=== PATIENT | female | born 2000 | race Two or more races ===

== ENCOUNTER → 2024-09-04 | Outpatient (CLI) | payer MEDICAID, SELFPAY ==
--- NOTE | 2024-09-04 16:18 | XR_ITS ---
Examination: Complete OB ultrasound, less than 14 weeks, transabdominal Date and time of exam: September 04, 2024 1622 hours INDICATIONS: Diagnosis high risk Technique: Obstetrical ultrasound images less than 14 weeks performed via transabdominal imaging Findings: A normal shaped single intrauterine gestation is present in the uterus. pole 6.6 cm corresponds to 12 weeks 6 days gestational age Cardiac motion 160 BPM Ultrasonographic survey of visible and placental structures unremarkable. Amniotic fluid volume appears appropriate for this estimated gestational age. Right ovary 2.9 cm arterial flow Left ovary 3.6 cm arterial flow IMPRESSION: Viable intrauterine gestation 12 weeks 6 days.
== END | disposition home or self-care (01) ==
PROVIDERS: Referring Provider Obstetrics & Gynecology; Visit Provider Obstetrics & Gynecology
DX: O09.91 Supervision of high risk pregnancy, unspecified, first trimester (principal); Z3A.12 12 weeks gestation of pregnancy
CPT/HCPCS: 76801

== ENCOUNTER 2025-01-21 13:05 | Outpatient (AMB) | payer MEDICAID, SELFPAY ==
[2025-01-21 13:20] VITALS: BP 110/69; PULSE 84; RESP 16; TEMP 36.2; O2SAT 98
--- NOTE | 2025-01-21 13:20 | OBCLNT_ITS ---
Vital Signs 01/21/25 13:20 Weight 63.56 kg Weight Measurement Method Standing Scale BP 110/69 Blood Pressure Source Automatic Cuff Blood Pressure Location Left Upper Arm Position Sitting Respiration 16 Pulse 84 Pulse Source Monitor Temp 97.2 F Temp Source Oral Pulse Oximetry (%) 98 Oxygen Delivery Method Room Air Allergies/Home Meds Allergies & Medications Allergies No Known Allergies Allergy (Verified 01/21/25 13:21) Medication Reconciliation No Known Home Medications 01/21/25 [History Confirmed 01/21/25] Intake Visit Data Collection New Patient or Established: Established Patient (seen at [facility] within 3 years) Reason for Visit:: OB TRANSFER Seen by Clinical Staff ONLY (RN/MA): No Fire Regulator Required: No Do You Feel Safe at Home: Yes Authorities Contacted: N/A PCP or OBGYN visit in last 3 months: Yes Hx Now: Yes Are you currently on any form of Control: No Last menstrual period: 06/06/24 Pain Present Currently: No Pain Scale Used: Smith-Bowen/Numerical Pain scale:: 0 Smoking Status Smoking Status: Never smoker Questionnaires Covid-19 Vaccine Questionnaire Has patient been vacinated for Covid-19 Have you been vacinated for Covid-19: No PHQ-9 PHQ-2 Over the last 2 weeks, how often have you been bothered by any of the following problems? 1. Little interest or pleasure in doing things: not at all 2. Feeling down, depressed, or hopeless: not at all Total score: 0 PHQ-9 3. Trouble falling or staying asleep, or sleeping too much: Not at all 4. Feeling tired or having little energy: Not at all 5. Poor appetite or overeating: Not at all 6. Feeling bad about yourself - or that you are a failure or have let yourself or your family down: Not at all 7. Trouble concentrating on things, such as reading the newspaper or watching television: Not at all 8. Moving or speaking so slowly that other people could have noticed? - Or the opposite - being so fidgety or restless that you have been moving around a lot more than usual: not at all 9. Thoughts that you would be better off or of hurting yourself in some way: Not at all Total score: 0 If you checked off any problems, how difficult have these problems made it for you to do your work, take care of things at home, or get along with other people?: not difficult at all Source: Developed by Drs. Andrea Banks, Jeanette Kirk, Terry Trammell and colleagues, with an educational constantino from [employer]. Depression screen completed yes Social History Living Situation History Marital Status: Single Lives With: Family Housing: House Tobacco History Smoking Status: Never smoker Second Hand Smoke Exposure: Yes Alcohol History Alcohol Intake: Never Domestic Abuse History Do You Feel Safe at Home: Yes History of Present Illness HPI Narrative 24-year-old 1 para 0 for OBI. Patient's OB transfer from Dr. Ann's office with records. Her last period June 06, 2024. In this gives due date March 13, 2025. She reports her dates and March 13, 2025 has been patient's working LCYDE. She had her first ultrasound December 09, 2024. Patient was 28 weeks 3 on that day and that gave an CLYDE of February 28, 2025. Less than 2 weeks difference so prior provider was using March 13, 2025 his CLYDE. Patient's H&H is 33/10.6. Platelets 262. Patient is O+, antibody screen negative, RPR nonreactive, rubella immune, hepatitis B negative, hep C negative, HIV negative, GC and Chlamydia were negative. Patient had a 1 RR of 142. aFP NIPT and carrier screens were negative. 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 Patient has a history of having a cold sore. Denies social habits. Denies surgery. Denies any existing chronic illnesses. OB Initial Visit OB Flowsheet OB Flowsheet Initial Weight: Not Recorded Date -?-?-?-?-?-?-?-?-?-?-?-?- EGA Weight BP Alb Glu CTX Pres Fundal ht FHR Mov Dilation Station Effacement Hx Notes Visit Note 01/21/25 -?-?-?-?-?-?-?-?-?-?-?-?- 32w 5d 63.56 kg 110/69 absent cephalic 31 145 active Fetus active. No complaints of labor. Denies PIH complaints. Patient for OB today. Transfer from Dr. Ann's with records. Denies leaking. Denies bleeding. Denies contractions. . Discusse d GDM diet. 3-hour GTT ordered. Continue vitamins and iron. Kick count twice a day. Schedule sono for growth. Return in 2 weeks OB check 3-hour GTT ordered. yeah labor and kick count discussed. Increase fluids. Tdap today. Return in 2 weeks OB check Menstrual History Menstrual reliability: definite Flow: normal Menstrual regularity: regular Monthly: Yes Age at menarche: 14 On control pills at conception: No OB History : 1 Para: 0 Hx # Pregnancies: 0 Hx Total # of Abortions (Spontaneous & Elective): 0 # of Living Children: 0 Infection History & Risk Evaluation History of STDs: none HIV risk evaluation: low risk Hepatitis B risk evaluation: low risk Patient or partner has history of Genital Herpes: No Varicella/chicken pox status: immunized Genetic Screening & History Genetic Screening/Teratology Counseling - Includes patient, baby's father, or anyone in either family with: 1. Patient's age 35 years or older as of estimated date of delivery: No 2. Thalassemia (Chilean, Kiswahili, Mediterranean, or Background); MCV less than 80: No 3. Neural Tube Defect (Meningomyelocele, Spina Bifida, or Anencephaly): No 4. Congenital Heart Defect: No 5. Down Syndrome: No 6. Brandon-Sachs (Ashkenazi Rastafarian, Cajun, Green[place]ic [place]): No 7. Gerber Disease (Ashkenazi Rastafarian): No 8. Familial Dysautonomia (Ashkenazi Rastafarian): No 9. Sickle Cell Disease or Trait (): No 10. Hemophilia or other blood disorders: No 11. Muscular Dystrophy: No 12. Cystic Fibrosis: No 13. Porfirio's Chorea: No 14. Mental Retardation/Autism: No 15. Other inherited genetic or chromosomal disorder: No 16. Maternal Metabolic Disorder (EG,TYPE 1 Diabetes, PKU): No 17. Patient or baby's father had a child with defects not listed above: No 18. Recurrent loss or a stillbirth: No 19. Medications (including supplements, vitamins, herbs or otc drugs)/illicit/recreational drugs/alcohol since last menstrual period: No 20. Any other: No Infection History 1. Live with someone with TB or exposed to TB: No 2. Rash or viral illness since last menstrual period: No 3. Hepatitis B,C: No Other (see comments) Source: [employer] Review of Systems Review of Systems Systems Reviewed: All systems reviewed, normal except as documented Exam General Limitations: no limitations General Appearance: alert, in no apparent distress, comfortable, cooperative, healthy appearing, well developed and well groomed Head Head exam: atraumatic, normocephalic and normal inspection ENT ENT exam: Present normal exam, normal oropharynx and mucous membranes moist Neck Neck exam: Present normal inspection, full ROM and trachea midline Chest Chest inspection: Present normal inspection and symmetric chest wall rise Resp Respiratory exam: Present normal lung sounds bilaterally Card Cardiovascular exam: Present regular rate, normal rhythm and normal heart sounds Abdominal Abdominal exam: Present soft and normal bowel sounds Psych Psychiatric exam: Present normal affect and normal mood Office Procedures OB Clinic LOC & Office Proc's Nursing/Assessment Patient Status: Established Patient OB Clinic Nursing Assessment: Medication Reconciliation, Update PMH in EMR and Vital Signs OB Clinic Coordination of Care: Education Complex Pt/Fam, Consent,records obtained, informed consent, Lab and Imaging orders and Staff clarify orders Special Needs: Heart tones Established Patient Charge Established Patient Point Assignment: 110 Established Patient Point Charge: EP Level 3 (80-115) Immunizations diphth,pertus(acell),tetanus 2.5 Lf unit-8 mcg-5 Lf/0.5mL IM syringe Performing Provider: Kisha Albrecht CNM Performing Location: [facility] Administered by: Maren Salazar MA on 01/22/25 11:56 Dose Route Admin Location Dispensed Lot Number Expiration Date Pack age [facility] Meat Processor 0.5 mL IM Left Deltoid 0.5 mL [id number] 03/13/27 [id number] [employer] VIS Given Date VIS Provided VIS Publication Date 01/21/25 Single Vaccine 25 Eligibility Eligibility Date Funding Source Public Non-[facility] Assessment & Plan Diagnosis / Problem List (1) Encounter for care in third trimester of first : Status: Acute (2) Encounter for supervision of high risk in third trimester, antepartum: Status: Acute Plan Sono for growth at [facility]. Discussed labs and dates with patient. labor precautions given. Tdap today. 3-hour GTT. And return in 2 weeks OB check Additional Plan Follow Up: 2 Weeks (obc)
== END 2025-01-21 13:49 | disposition home or self-care (01) ==
LOC: HODSOBC 13:05
PROVIDERS: Supervising Provider Advanced Practice Midwife; Visit Provider Advanced Practice Midwife
DX: O09.93 Supervision of high risk pregnancy, unspecified, third trimester (principal); Z3A.32 32 weeks gestation of pregnancy; Z23 Encounter for immunization
CPT/HCPCS: 90471; 90715; 99213; G0463

== ENCOUNTER 2025-02-04 12:56 | Outpatient (AMB) | payer MEDICAID, SELFPAY ==
[2025-02-04 13:13] VITALS: BP 110/69; PULSE 98; RESP 18; TEMP 36.2; O2SAT 98; BMI 28.3
--- NOTE | 2025-02-04 13:13 | AMB.OBVISIT ---
Vital Signs 02/04/25 13:13 Height 1.5 m Height Method Stated Weight 63.503 kg Weight Measurement Method Standing Scale BMI 28.3 BP 110/69 Blood Pressure Source Automatic Cuff Blood Pressure Location Right Upper Arm Position Sitting Respiration 18 Pulse 98 Pulse Source Monitor Temp 97.2 F Temp Source Temporal Artery Scan Pulse Oximetry (%) 98 Oxygen Delivery Method Room Air Allergies/Home Meds Allergies & Medications Allergies No Known Allergies Allergy (Verified 01/21/25 13:21) Intake Visit Data Collection New Patient or Established: Established Patient (seen at [facility] within 3 years) Reason for Visit:: OBC FOLLOW Oracle Sql Developer Required: Yes Do You Feel Safe at Home: Yes Authorities Contacted: N/A PCP or OBGYN visit in last 3 months: Yes Date of Last PCP or OBGYN visit: 01/21/25 Hx Now: Yes Are you currently on any form of Control: No Pain Present Currently: No Smoking Status Smoking Status: Never smoker Questionnaires PHQ-9 PHQ-2 Over the last 2 weeks, how often have you been bothered by any of the following problems? 1. Little interest or pleasure in doing things: not at all PHQ-9 8. Moving or speaking so slowly that other people could have noticed? - Or the opposite - being so fidgety or restless that you have been moving around a lot more than usual: not at all Source: Developed by Drs. Andrea Banks, Jeanette Kirk, Terry Trammell and colleagues, with an educational constantino from [employer]. Social History Living Situation History Lives With: Family Housing: House Tobacco History Smoking Status: Never smoker Second Hand Smoke Exposure: Yes Alcohol History Alcohol Intake: Never Domestic Abuse History Do You Feel Safe at Home: Yes Care OB Visit Log OB Flowsheet Initial Weight: Not Recorded Date <del>?</del> EGA Weight BP Alb Glu CTX Pres Fundal ht FHR Mov Dilation Station Effacement Hx Notes Visit Note 01/21/25 <del>?</del> 32w 5d 63.56 kg 110/69 absent cephalic 31 145 active Fetus active. No complaints of labor. Denies PIH complaints. Patient for OB today. Transfer from Dr. Ann's with records. Denies leaking. Denies bleeding. Denies contractions. . Discussed GDM diet. 3-hour GTT ordered. Continue vitamins and iron. Kick count twice a day. Schedule sono for growth. Return in 2 weeks OB check 3-hour GTT ordered. yeah labor and kick count discussed. Increase fluids. Tdap today. Return in 2 weeks OB check 02/04/25 <del>?</del> 34w 5d 63.503 kg 110/69 absent cephalic 34 145 active Reports good movement. Denies labor complaints. Denies contractions. Denies bleeding Discussed gestational diabetes with patient. Discussed GDM diet. Discussed how to monitor and log blood sugars. Ordered weekly NST BPP. Will induce at 39 weeks. Advised patient to walk 40 minutes a day. Discussed labor precautions and discussed kick count twice a day. I reviewed dates. Return in a week for OB check and GBS CLYDE Calculator Estimated Delivery Date Method Current WG Current Estimate 03/13/25 LMP (Certain) 34w 5d Other Estimates 02/28/25 Ultrasound #1 36w 4d 03/13/25 Ultrasound #2 34w 5d 03/13/25 Manual 34w 5d final CLYDE: 03/13/25 Notes Visit Date: 02/04/25 Last Updated by: Kisha Albrecht CNM 1st OB sono: 09/04/24: 12w6. EDC 03/13/25. confirm CLYDE 02/04: 3 hr gtt: 1hr/2hr values elevated. GDM diet Visit Date: 01/21/25 Last Updated by: Kisha Albrecht CNM 24 yo . LMP: 06/06/24. EDC: 03/13/25. 1st sono IUP 28w3 on 12/09/24. EDC by sono: 02/28/25. less than 3 week/3rd tri. Keep 03/13/25 for clyde. OB panel: O+,abs-, rpr;;nr, rub imm, hbsag-, hiv-, HC-, GC/CT-, UA-, 1hr gtt: 142. , NIPT/AFP, carrier screen- Office Procedures OBC Clinic LOC & Office Proc's Nursing/Assessment Patient Status: Established Patient OB Clinic Nursing Assessment: Medication Reconciliation, Update PMH in EMR and Vital Signs OB Clinic Coordination of Care: Complex Care and Chronic Disease 1-5, Education Complex Pt/Fam, Consent,records obtained, informed consent, Lab and Imaging orders and Results/Orders obtained Special Needs: Heart tones Established Patient Charge Established Patient Point Assignment: 130 Established Patient Point Charge: EP Level 4 (120-155) Assessment & Plan Diagnosis / Problem List (1) Diet controlled gestational diabetes mellitus (GDM) in third trimester: Status: Acute (2) Encounter for supervision of high risk in third trimester, antepartum: Status: Acute Plan Keep appointment for growth sono to schedule. Reviewed GDM with patient. Discussed GDM diet and compliance. Patient to walk 40 minutes a day. I discussed checking blood sugars 4 times a day. And how to log them. Patient will come back with health educator review glucometer. Discussed labor precautions. I scheduled weekly NST BPP. Return in a week OB check Additional Plan Follow Up: 1 Week (obc)
== END 2025-02-04 13:43 | disposition home or self-care (01) ==
PROVIDERS: Supervising Provider Advanced Practice Midwife; Visit Provider Advanced Practice Midwife
DX: O09.893 Supervision of other high risk pregnancies, third trimester (principal); O24.410 Gestational diabetes mellitus in pregnancy, diet controlled; Z3A.34 34 weeks gestation of pregnancy
CPT/HCPCS: 99214; G0463

== ENCOUNTER 2025-02-17 13:58 | Outpatient (AMB) | payer MEDICAID, SELFPAY ==
[2025-02-17 14:08] VITALS: BP 111/65; PULSE 67; RESP 17; TEMP 36.4; O2SAT 98; BMI 29.0
--- NOTE | 2025-02-17 14:08 | AMB.OBVISIT ---
Vital Signs 02/17/25 14:08 Height 1.5 m Height Method Stated Weight 65.374 kg Weight Measurement Method Standing Scale BMI 29.0 BP 111/65 Blood Pressure Source Automatic Cuff Blood Pressure Location Right Upper Arm Position Sitting Respiration 17 Pulse 67 Pulse Source Monitor Temp 97.5 F Temp Source Temporal Artery Scan Pulse Oximetry (%) 98 Oxygen Delivery Method Room Air Allergies/Home Meds Allergies & Medications Allergies No Known Allergies Allergy (Verified 02/17/25 14:09) Medication Reconciliation blood sugar diagnostic (Blood Glucose Test strips) #10 ea 02/04/25 [Rx Confirmed 02/17/25] blood-glucose meter #1 ea 02/04/25 [Rx Confirmed 02/17/25] lancets #100 ea 02/04/25 [Rx Confirmed 02/17/25] Intake Visit Data Collection New Patient or Established: Established Patient (seen at [facility] within 3 years) Reason for Visit:: OBC Seen by Clinical Staff ONLY (RN/MA): No Cnc Mill Operator Required: No Do You Feel Safe at Home: Yes Authorities Contacted: N/A PCP or OBGYN visit in last 3 months: Yes Date of Last PCP or OBGYN visit: 02/12/25 Hx Now: Yes Are you currently on any form of Control: No Pain Present Currently: No Pain Scale Used: Smith-Bowen/Numerical Pain scale:: 1 Smoking Status Smoking Status: Never smoker Questionnaires Covid-19 Vaccine Questionnaire Has patient been vacinated for Covid-19 Have you been vacinated for Covid-19: No PHQ-9 PHQ-2 Over the last 2 weeks, how often have you been bothered by any of the following problems? 1. Little interest or pleasure in doing things: not at all 2. Feeling down, depressed, or hopeless: not at all Total score: 0 PHQ-9 3. Trouble falling or staying asleep, or sleeping too much: Not at all 4. Feeling tired or having little energy: Not at all 5. Poor appetite or overeating: Not at all 6. Feeling bad about yourself - or that you are a failure or have let yourself or your family down: Not at all 7. Trouble concentrating on things, such as reading the newspaper or watching television: Not at all 8. Moving or speaking so slowly that other people could have noticed? - Or the opposite - being so fidgety or restless that you have been moving around a lot more than usual: not at all 9. Thoughts that you would be better off or of hurting yourself in some way: Not at all Total score: 0 If you checked off any problems, how difficult have these problems made it for you to do your work, take care of things at home, or get along with other people?: not difficult at all Source: Developed by Drs. Andrea Banks, Jeanette Kirk, Terry Trammell and colleagues, with an educational constantino from [employer]. Depression screen completed yes Social History Living Situation History Marital Status: Lives With: Family Housing: House Tobacco History Smoking Status: Never smoker Second Hand Smoke Exposure: Yes Alcohol History Alcohol Intake: Never Domestic Abuse History Do You Feel Safe at Home: Yes Care OB Visit Log OB Flowsheet Initial Weight: Not Recorded Date <del>?</del> EGA Weight BP Alb Glu CTX Pres Fundal ht FHR Mov Dilation Station Effacement Hx Notes Visit Note 01/21/25 <del>?</del> 32w 5d 63.56 kg 110/69 absent cephalic 31 145 active Fetus active. No complaints of labor. Denies PIH complaints. Patient for OB today. Transfer from Dr. Ann's with records. Denies leaking. Denies bleeding. Denies contractions. . Discussed GDM diet. 3-hour GTT ordered. Continue vitamins and iron. Kick count twice a day. Schedule sono for growth. Return in 2 weeks OB check 3-hour GTT ordered. yeah labor and kick count discussed. Increase fluids. Tdap today. Return in 2 weeks OB check 02/04/25 <del>?</del> 34w 5d 63.503 kg 110/69 absent cephalic 34 145 active Reports good movement. Denies labor complaints. Denies contractions. Denies bleeding Discussed gestational diabetes with patient. Discussed GDM diet. Discussed how to monitor and log blood sugars. Ordered weekly NST BPP. Will induce at 39 weeks. Advised patient to walk 40 minutes a day. Discussed labor precautions and discussed kick count twice a day. I reviewed dates. Return in a week for OB check and GBS 02/17/25 <del>?</del> 36w 4d 65.374 kg 111/65 absent cephalic 36 140 active Fetus active per patient. Occasional cramps. Denies leaking or bleeding. Patient reports that her blood sugars are 100 and under even after meals. And she is compliant with her weekly NST BPP. Continue GDM diet. Continue walking 40 minutes a day. Continue to log sugars 4 times a day and compliance with her weekly NST BPP. Kick count twice a day. GBS today. Will schedule induction for 39 weeks. Continue GDM diet. Continue walking 40 minutes a day. Continue to log sugars 4 times a day and compliance with her weekly NST BPP. Kick count twice a day. GBS today. Will schedule induction for 39 weeks. IOL 03/08 CLYDE Calculator Estimated Delivery Date Method Current WG Current Estimate 03/13/25 LMP (Certain) 36w 4d Other Estimates 02/28/25 Ultrasound #1 38w 3d 03/13/25 Ultrasound #2 36w 4d 03/13/25 Manual 36w 4d final CLYDE: 03/13/25 Notes Visit Date: 02/04/25 Last Updated by: Kisha Albrecht CNM 1st OB sono: 09/04/24: 12w6. EDC 03/13/25. confirm CLYDE 02/04: 3 hr gtt: 1hr/2hr values elevated. GDM diet Visit Date: 01/21/25 Last Updated by: Kisha Albrecht CNM 24 yo . LMP: 06/06/24. EDC: 03/13/25. 1st sono IUP 28w3 on 12/09/24. EDC by sono: 02/28/25. less than 3 week/3rd tri. Keep 03/13/25 for clyde. OB panel: O+,abs-, rpr;;nr, rub imm, hbsag-, hiv-, HC-, GC/CT-, UA-, 1hr gtt: 142. , NIPT/AFP, carrier screen- Office Procedures OBC Clinic LOC & Office Proc's Nursing/Assessment Patient Status: Established Patient OB Clinic Nursing Assessment: Medication Reconciliation, Update PMH in EMR and Vital Signs OB Clinic Coordination of Care: Complex Care and Chronic Disease 1-5, Education Complex Pt/Fam, Consent,records obtained, informed consent, Lab and Imaging orders and Staff clarify orders Special Needs: Heart tones Miscellaneous Interventions: Culture Specimen Collection Established Patient Charge Established Patient Point Assignment: 150 Established Patient Point Charge: EP Level 4 (120-155) Assessment & Plan Diagnosis / Problem List (1) Diet controlled gestational diabetes mellitus (GDM) in third trimester: Status: Acute (2) Encounter for supervision of high risk in third trimester, antepartum: Status: Acute Plan Schedule induction for March 08. Continue weekly NST BPP. Continue GDM diet and monitoring glucose results. Walk 40 minutes a day. Kick count twice a day. And discussed labor precautions. Discussed ER precautions. GBS today Additional Plan Follow Up: 1 Week (obc)
== END 2025-02-17 14:49 | disposition home or self-care (01) ==
PROVIDERS: Supervising Provider Advanced Practice Midwife; Visit Provider Advanced Practice Midwife
DX: O09.893 Supervision of other high risk pregnancies, third trimester (principal); O24.410 Gestational diabetes mellitus in pregnancy, diet controlled; Z3A.36 36 weeks gestation of pregnancy; Z36.85 Encounter for antenatal screening for Streptococcus B
CPT/HCPCS: 99214; G0463

== ENCOUNTER 2025-03-04 09:17 | Outpatient (AMB) | payer MEDICAID, SELFPAY ==
[2025-03-04 09:24] VITALS: BP 105/68; PULSE 87; RESP 16; TEMP 36.6; O2SAT 98; BMI 29.5
--- NOTE | 2025-03-04 09:24 | OBCLNT_ITS ---
Vital Signs 03/04/25 09:24 Height 1.5 m Height Method Stated Weight 66.338 kg Weight Measurement Method Standing Scale BMI 29.5 BP 105/68 Blood Pressure Source Automatic Cuff Blood Pressure Location Left Upper Arm Position Sitting Respiration 16 Pulse 87 Pulse Source Monitor Temp 97.8 F Temp Source Oral Pulse Oximetry (%) 98 Oxygen Delivery Method Room Air Allergies/Home Meds Allergies & Medications Allergies No Known Allergies Allergy (Verified 03/04/25 09:25) Medication Reconciliation blood sugar diagnostic (Blood Glucose Test strips) #10 ea 02/04/25 [Rx Confirmed 03/04/25] blood-glucose meter #1 ea 02/04/25 [Rx Confirmed 03/04/25] lancets #100 02/04/25 [Rx Confirmed 03/04/25] Intake Visit Data Collection New Patient or Established: Established Patient (seen at [facility] within 3 years) Reason for Visit:: CARE Seen by Clinical Staff ONLY (RN/MA): No Straddle Truck Operator Required: No Do You Feel Safe at Home: Yes Authorities Contacted: N/A PCP or OBGYN visit in last 3 months: Yes Hx Now: Yes Are you currently on any form of Control: No Pain Present Currently: No Pain Scale Used: Smith-Bowen/Numerical Pain scale:: 0 Smoking Status Smoking Status: Never smoker Immunizations Flu Vaccine in the Last 12 Months: No Flu Vaccine Exclusion Criteria: No Exclusion Criteria Questionnaires Covid-19 Vaccine Questionnaire Has patient been vacinated for Covid-19 Have you been vacinated for Covid-19: No PHQ-9 PHQ-2 Over the last 2 weeks, how often have you been bothered by any of the following problems? 1. Little interest or pleasure in doing things: not at all 2. Feeling down, depressed, or hopeless: not at all Total score: 0 PHQ-9 3. Trouble falling or staying asleep, or sleeping too much: Not at all 4. Feeling tired or having little energy: Not at all 5. Poor appetite or overeating: Not at all 6. Feeling bad about yourself - or that you are a failure or have let yourself or your family down: Not at all 7. Trouble concentrating on things, such as reading the newspaper or watching television: Not at all 8. Moving or speaking so slowly that other people could have noticed? - Or the opposite - being so fidgety or restless that you have been moving around a lot more than usual: not at all 9. Thoughts that you would be better off or of hurting yourself in some way: Not at all Total score: 0 Source: Developed by Drs. Andrea Banks, Jeanette Kirk, Terry Trammell and colleagues, with an educational constantino from [employer]. Depression screen completed yes Social History Living Situation History Lives With: Family Housing: House Tobacco History Smoking Status: Never smoker Second Hand Smoke Exposure: Yes Alcohol History Alcohol Intake: Never Domestic Abuse History Do You Feel Safe at Home: Yes Care OB Visit Log OB Flowsheet Initial Weight: Not Recorded Date -?-?-?-?-?-?-?-?-?-?-?-?- EGA Weight BP Alb Glu CTX Pres Fundal ht FHR Mov Dilation Station Effacement Hx Notes Visit Note 01/21/25 -?-?--?-?-?-?-?-?-?-?-?-?- 32w 5d 63.56 kg 110/69 absent cephalic 31 145 active Fetus active. No complaints of labor. Denies PIH complaints. Patient for OB today. Transfer from Dr. Ann's with records. Denies leaking. Denies bleeding. Denies contractions. . Discusse d GDM diet. 3-hour GTT ordered. Continue vitamins and iron. Kick count twice a day. Schedule sono for growth. Return in 2 weeks OB check 3-hour GTT ordered. yeah labor and kick count discussed. Increase fluids. Tdap today. Return in 2 weeks OB check 02/04/25 -?-?-?-?-?-?-?-?-?-?-?-?- 34w 5d 63.503 kg 110/69 absent cephalic 34 145 active Reports good movement. Denies labor complaints. Denies contractions. Denies bleeding Discussed gestat ional diabetes with patient. Discussed GDM diet. Discussed how to monitor and log blood sugars. Ordered weekly NST BPP. Will in duce at 39 weeks. Advised patient to walk 40 minutes a day. Discussed labor precautions and discussed kick count twice a day. I reviewed dates. Return in a week for OB check and GBS 02/17/25 -?-?-?-?-?-?-?-?-?-?-?-?- 36w 4d 65.374 kg 111/65 absent cephalic 36 140 active Fetus active per patient. Occasional cramps. Denies leaking or bleeding. Patient reports that her blood sugars are 100 and under even after meals. And she is compliant with her weekly NST BPP. Continue GDM diet. Continue walking 40 minutes a day. Con tinue to log sugars 4 times a day and compliance with her weekly NST BPP. Kick count twice a day. GBS today. Will schedule induction for 39 weeks. Continue GDM diet. Continue walking 40 minutes a day. Continue to log sugars 4 times a day and compliance with her weekly NST BPP. Kick count twice a day. GBS today. Will schedule induction for 39 weeks. IOL 03/0803/04/25 -?-?-?--?-?-?-?-?-?-?-?-?- 38w 5d 66.338 kg 105/68 occasional cephalic 35 135 active Complains of increased contractions backache. Reports good movement. Denies leaking, bleeding. Patient reports good compliance with her GDM diet. Blood sugars are at goal 100% of the time. Patient is compliant with her weekly NST BPP. She is scheduled for induction March 08. Induction March 08. Continue kick count twice a day. Continue weekly NST BPP. We reviewed GDM diet and blood sugars. Discussed danger signs and symptoms and labor precautions. Return a week OB check CLYDE Calculator Estimated Delivery Date Method Current WG Current Estimate 03/13/25 Ultrasound #2 38w 5d Other Estimates 03/13/25 LMP (Certain) 38w 5d 02/28/25 Ultrasound #1 40w 4d 03/13/25 Manual 38w 5d final CLYDE: 02/14 Notes Visit Date: 03/04/25 Last Updated by: Kisha Albrecht CNM 03/03: gbs- Visit Date: 02/04/25 Last Updated by: Kisha Albrecht CNM 1st OB sono: 09/04/24: 12w6. EDC 03/13/25. confirm CLYDE 02/04: 3 hr gtt: 1hr/2hr values elevated. GDM diet Visit Date: 01/21/25 Last Updated by: Kisha Albrecht CNM 24 yo . LMP: 06/06/24. EDC: 03/13/25. 1st sono IUP 28w3 on 12/09/24. EDC by sono: 02/28/25. less than 3 week/3rd tri. Keep 03/13/25 for clyde. OB panel: O+,abs-, rpr;;nr, rub imm, hbsag-, hiv-, HC-, GC/CT-, UA-, 1hr gtt: 142. , NIPT/AFP, carrier screen- Office Procedures OBC Clinic LOC & Office Proc's Nursing/Assessment Patient Status: Established Patient OB Clinic Nursing Assessment: Medication Reconciliation, Update PMH in EMR and Vital Signs OB Clinic Coordination of Care: Complex Care and Chronic Disease 1-5, Consent,records obtained, informed consent, Education Simp Pt/Fam, 1 Ins Authorization, Lab and Imaging orders, Results/Orders obtained and Staff clarify orders Special Needs: Heart tones Established Patient Charge Established Patient Point Assignment: 150 Established Patient Point Charge: EP Level 4 (120-155) Assessment & Plan Diagnosis / Problem List (1) Diet controlled gestational diabetes mellitus (GDM) in third trimester: Status: Acute (2) Encounter for supervision of high risk in third trimester, antepartum: Status: Acute Plan Kick count twice a day. Discussed labor precautions. Danger signs symptoms ER precautions. Continue GDM diet and weekly NST BPP. Patient scheduled for March 08 for induction. Reviewed with patient. Return in a week if undelivered Additional Plan Follow Up: 1 Week (obc)
== END 2025-03-04 09:52 | disposition home or self-care (01) ==
PROVIDERS: Supervising Provider Advanced Practice Midwife; Visit Provider Advanced Practice Midwife
DX: O09.893 Supervision of other high risk pregnancies, third trimester (principal); O24.410 Gestational diabetes mellitus in pregnancy, diet controlled; Z3A.38 38 weeks gestation of pregnancy
CPT/HCPCS: 99214; G0463

== ENCOUNTER 2025-03-05 15:41 | Outpatient (RCR) | payer MEDICAID, SELFPAY ==
--- NOTE | 2025-02-12 16:08 | XR_ITS ---
Examination: Biophysical profile, ultrasound Date and time of exam: February 12, 2025, 1607 hrs. Indications: Diagnosis high risk , diagnosis gestational diabetes Technique: Multiple transabdominal sonographic images of the pelvis abdomen obtained. Attention is directed to the breathing movement, gross body movement, amniotic fluid volume and tone. Findings: Amniotic fluid index 15.6 cm Total biophysical profile is 8 of 8. breathing movement is 2. Gross body movement is 2. tone is 2. Qualitative amniotic fluid volume is 2 Impression: Biophysical profile is 8 of 8.
[2025-02-12 16:32] VITALS: BP 109/57; PULSE 86; RESP 16; TEMP 36.7
--- NOTE | 2025-02-19 15:43 | XR_ITS ---
Examination: Biophysical profile, ultrasound Date and time of exam: February 19, 2025, 1546 hours INDICATIONS: Diagnosis gestational diabetes, diagnosis high risk Technique: Multiple transabdominal sonographic images of the pelvis abdomen obtained. Attention is directed to the breathing movement, gross body movement, amniotic fluid volume and tone. Findings: Amniotic fluid index 14.3 cm Total biophysical profile is 8 of 8. breathing movement is 2. Gross body movement is 2. tone is 2. Qualitative amniotic fluid volume is 2 Impression: Biophysical profile is 8 of 8.
[2025-02-19 16:09] VITALS: BP 92/54; PULSE 83; RESP 16; TEMP 36.8
--- NOTE | 2025-02-26 15:49 | XR_ITS ---
EXAMINATION: Biophysical profile, ultrasound Date and time: February 26, 2025 1606 hours INDICATIONS: Diagnosis high risk , diagnosis gestational diabetes TECHNIQUE AND FINDINGS: Biophysical assessment including body movement, breathing motion, tone, RAFAEL Body movement: 2 Breathing motion: 2 tone: 2 Qualitative RAFAEL: 2 IMPRESSION: Biophysical profile 8 of 8 Amniotic fluid index 7.1 cm
[2025-02-26 17:08] VITALS: BP 112/60; PULSE 90; RESP 16; TEMP 36.7
[2025-02-26 17:54] VITALS: BP 112/60; PULSE 90; RESP 16; TEMP 36.7
--- NOTE | 2025-03-05 16:04 | XR_ITS ---
Examination: Biophysical profile, ultrasound Date and time of exam: March 05, 2025, 1610 hours INDICATIONS: Diagnosis high risk , diagnosis gestational diabetes Technique: Multiple transabdominal sonographic images of the pelvis abdomen obtained. Attention is directed to the breathing movement, gross body movement, amniotic fluid volume and tone. Findings: Amniotic fluid index 15.3 cm Total biophysical profile is 8 of 8. breathing movement is 2. Gross body movement is 2. tone is 2. Qualitative amniotic fluid volume is 2 Impression: Biophysical profile is 8 of 8.
[2025-03-05 17:40] VITALS: BP 110/69; PULSE 77; RESP 18
--- NOTE | 2025-03-08 08:02 | PC.NURSE ---
PT CALLED ASKING FOR BED AVAILABILITY FOR IOL, INFORMED OF NO BEDS AVAILABLE AT THIS TIME, INFORMED OF CALLING IF BED BECOMES AVAILABLE, ASKED PT TO CALL BACK AT 2100 IF DOES NOT RECEIVE CALL DURING DAY SHIFT, EDUCATED ON KICK COUNT AND LABOR PRECAUTIONS, PT VERBALIZED UNDERSTANDING
== END 2025-03-05 23:59 | disposition home or self-care (01) ==
LOC: S4S1 15:41
PROVIDERS: PCP Family Medicine; Referring Provider Advanced Practice Midwife; Visit Provider Advanced Practice Midwife
DX: O09.93 Supervision of high risk pregnancy, unspecified, third trimester (principal); O24.410 Gestational diabetes mellitus in pregnancy, diet controlled; Z3A.38 38 weeks gestation of pregnancy
CPT/HCPCS: 59025; 76819

== ENCOUNTER 2025-03-10 15:09 | Inpatient (IN) | payer MEDICAID, SELFPAY ==
[2025-03-10 15:59] VITALS: BP 117/62; PULSE 78; RESP 17; TEMP 36.7
[2025-03-10 16:19] VITALS: RESP 16; O2SAT 100
--- NOTE | 2025-03-10 16:22 | XR_ITS ---
Examination: Complete OB ultrasound greater than 14 weeks Date and time of exam: March 10, 2025, 1630 hours INDICATIONS: Labor induction today Findings: Viable intrauterine single fetus with single amniotic sac presentation cephalic spine maternal right Cardiac motion 136 bpm Placenta anterior grade 3 Umbilical cord insertion seen Amniotic fluid index 8.5 cm Cervix 3.2 cm Ovaries obscured by the gestation. Composite estimated gestational age based on BPD, head circumference, abdominal circumference, femur length is 38 weeks 4 days Estimated weight 3454 g Survey of intracranial anatomy, spinal anatomy, abdominal anatomy, four-chamber heart performed with no abnormalities identified. Impression: Viable intrauterine gestation in cephalic presentation.
[2025-03-10 16:30] VITALS: BMI 32.5
[2025-03-10 17:02] LABS: Basophils # (Auto) 0.0 Thou/mm3 (0.0-0.2); Basophils % (Auto) 0 % (0-2.5); Eosinophils # (Auto) 0.1 Thou/mm3 (0.0-0.5); Eosinophils % (Auto) 1 % (0-10); Hematocrit 31.1 % (36.0-46.0); Hemoglobin 10.0 g/dL (12.0-16.0); Immature Granulocytes Auto 0.06 Thou/mm3 (0.00-0.00); Lymphocytes # (Auto) 1.8 Thou/mm3 (1.0-4.8); Lymphocytes % (Auto) 24 % (10-50); Mean Corpuscular HGB Conc 32.2 g/dl (31.0-37.0); Mean Corpuscular Hemoglobin 25.6 pg (25.0-35.0); Mean Corpuscular Volume 80 fL (80-100); Monocytes # (Auto) 0.6 Thou/mm3 (0.0-0.8); Monocytes % (Auto) 8 % (0-12); Neutrophils # (Auto) 5.2 Thou/mm3 (1.8-7.7); Neutrophils % (Auto) 67 % (37-80); Nucleated Red Blood Cell # 0.02 Thou/mm3 (0.00-0.00); Nucleated Red Blood Cell % 0 /100 WBC (0); Platelet Count 319 Thou/mm3 (140-440); RDW Standard Deviation 43.1 fL (36.4-46.3); Red Blood Count 3.90 Miln/mm3 (4.00-5.20); White Blood Count 7.7 Thou/mm3 (3.6-11.0)
[2025-03-10 17:41] LABS: Syphilis Nonreactive (Nonreactive)
--- NOTE | 2025-03-10 18:31 | PD.LDPN ---
Documentation for date of: 03/10/25 OB Labor Progress Note Pain Control Pain control: tolerating well Pelvic Exam Dilation (cm): 2 Effacement (%): 70 station: -2 Amniotic membrane status: Intact Contractions Monitor mode: External Contraction frequency: Irregular Contraction intensity: Mild Status status: Category l Assessment and Plan Assessment: induction ongoing Plan OB labor note: continuous present management History of Present Illness HPI The patient is a 24-year-old G1, P0 with all care started with Dr. Ann transferred to Kisha Albrecht CNM who is being induced for gestational diabetes, diet-controlled. The baby was having some potential variables so I did examine the patient. She has a Cervidil in place since around 1600.
--- NOTE | 2025-03-10 18:38 | PD.LDPN ---
Documentation for date of: 03/10/25 OB Labor Progress Note Pelvic Exam Dilation (cm): 2 Effacement (%): 70 station: -2 Amniotic membrane status: Intact Contractions Monitor mode: External Contraction frequency: Irregular Contraction intensity: Mild Status status: Category l History of Present Illness HPI The patient is a 24-year-old G1, P0 with all care started with Dr. Lorenzo transferred to Kisha Albrecht CNM who is being induced for gestational diabetes, diet-controlled. The baby was having some potential variables so I did examine the patient.
[2025-03-10 19:00] VITALS: RESP 16; TEMP 36.7; O2SAT 100
[2025-03-10 19:52] VITALS: BP 116/78; PULSE 83
[2025-03-10 19:58] VITALS: BP 113/68; PULSE 83
[2025-03-10 20:28] VITALS: BP 79/53; PULSE 97
[2025-03-11] VITALS (66 sets, daily range): BP systolic 93–159; BP diastolic 52–75; PULSE 67–116; RESP 17–19; TEMP 36.8–37.1; O2SAT 91–94
[2025-03-11] MEDS: RINGERS LACTATED 1000 ML 1,000 ML 100 ML IV ×6 (00:15→22:56)
[2025-03-11] MEDS: TERBUTALINE SULF INJ 1 MG/ML VIAL 0.25 MG SC (05:58)
--- NOTE | 2025-03-11 08:51 | ESHP_ITS ---
Documentation for date of: 03/11/25 OB Labor/Induct. HPI History of Present Illness Chief complaint: induction : 1 Para: 0 Term pregnancies: 0 pregnancies: 0 Living children: 0 History of Abortions: Spontaneous and Elective: 0 History of Vaginal deliveries: 0 History of sections: No History of : No Date of last menstrual period: 06/06/24 CLYDE: 03/13/25 Gestational Age (weeks): 39 Gestational Age (days): 5 Gestational age based on last menstrual period: 39 History of present illness: 24-year-old 1 para 0 admit to labor and delivery for induction of labor. Patient was initially followed at Dr. Lorenzo office. And transferred around 29 weeks. Patient is O+, antibody screen negative, RPR nonreactive, rubella immune, hepatitis B negative, hep C negative, HIV negative, GC and Chlamydia were negative. NIPT screen negative. Rubella immune. GBS negative. She had abnormal 1 hour GTT and 3-hour was abnormal as well. So patient is been followed with GDM diet and monitoring glucose. Denies social habits. Denies surgery. Denies current History of Present Dating criteria: LMP confirmed by 1st trimester US Adequate Care: Yes Ultrasounds: normal 1st trimester US and normal mid trimester US Obstetrical complications: gestational diabetes Medical complications: none Labs Labs: Positive: Rubella Titre, Negative: RPR, Hepatitis B, HIV, Chlamydia, Gonorrhea and Group Beta Strep and Unknown: Herpes Type 1, Herpes Type 2 and Covid-19 Review of Systems Review of Systems Systems Reviewed: All systems reviewed, normal except as documented Past Medical History Surgical History SURGICAL: Negative Section Meds Home Medications and Allergies Allergies Allergy/AdvReac Type Severity Reaction Status Date / Time No Known Allergies Allergy Verified 03/10/25 16:23 OB Exam Physical Exam Vital signs: Temp Pulse Resp BP Pulse Ox O2 Del Method 98.1 F 87 16 117/70 100 Room Air 03/10/25 19:00 03/11/25 08:41 03/10/25 19:00 03/11/25 08:41 03/10/25 19:00 03/10/25 19:00 Narrative: Normal heart rate and rhythm. Lungs clear no wheezes. Gravid abdomen. Gynecoid pelvis. Estimated weight 8 pounds. Vaginal examination was long, thick, posterior ,medium. Cervix was closed. Vertex presentation. 3500 g on ultrasound. Irregular contraction bag water intact Detailed Labor and Delivery Exam Dilation (cm): closed Effacement (%): thick Cervix position: posterior station: -4 Consistency: medium Presentation: Vertex Cervical ripeness score: 2 Membranes: intact Baseline heart rate: 135 monitor accelerations: 15x15 monitor decelerations: None prison variability: Moderate (11-25) Contraction frequency (min): occ Contraction duration (sec): 30 Tachysystole: No Contraction intensity: Mild OB Results Labs 03/10/25 16:05 Labs: Short CBC 03/10/25 Range/Units 16:05 WBC 7.7 (3.6-11.0) Thou/mm3 Hgb 10.0 L (12.0-16.0) g/dL Hct 31.1 L (36.0-46.0) % Plt Count 319 (140-440) Thou/mm3 OB Assessment & Plan Assessment and Plan (1) Encounter for induction of labor: Status: Acute Additional Plan Induction method: per misoprostol protocol Plan: induction, anticipate NVD and consult MD dotson
[2025-03-11] MEDS: OXYTOCIN in NS 30 units 30 UNIT/500 ML BAG IV (12:59)
[2025-03-11] MEDS: fentaNYL CIT INJ 50 mCg/ML AMP 2ML 100 MCG IVP (19:00)
--- NOTE | 2025-03-11 22:27 | PC.NURSE ---
ALL CHARTING FOR LABOR PROGRESS ASSESSMENT DOCUMENTATION INCLUDING TRACING AND UTERINE CONTRACTION PATTERN CHARTED BY NANCY RODRÍGUEZ RN STARTING FROM 03/10/20251844-03/11/2025 SUPERVISED AND VERIFIED BY Duane ARGUETA RN . ALL NURSING INTERVENTIONS DONE AND CHARTED BY NANCY RODRÍGUEZ RN SUPERVISED AND VERIFIED BY Duane ARGUETA RN STARTING FROM 03/10/20251844 TO 03/11/2025 AT 0715.
[2025-03-12] VITALS (68 sets, daily range): BP systolic 90–148; BP diastolic 51–90; PULSE 60–101; RESP 15–21; TEMP 36.7–38.1; O2SAT 90–100
[2025-03-12] MEDS: ACETAMINOPHEN IVPB 1,000 MG/100 ML VIAL 250 MG IV (02:34)
[2025-03-12] MEDS: RINGERS LACTATED 1000 ML 1,000 ML 100 ML IV (03:04)
[2025-03-12] MEDS: Ampicillin Inj 2,000 MG in SODIUM CHLORIDE 0.9% (POP) 100 ML 100 MG IV (03:06)
--- NOTE | 2025-03-12 06:10 | PD.LDPN ---
Documentation for date of: 03/12/25 OB Labor Progress Note Pain Control Pain control: epidural Pelvic Exam Dilation (cm): 4.5 Effacement (%): 80/swollen station: -2 Amniotic membrane status: Ruptured Contractions Monitor mode: Internal Contraction frequency: 4 Contraction duration: 40 Contraction phase: Resting Contraction intensity: Moderate Status status: Category l Assessment and Plan Pitocin rate (mU/min): 6 Assessment: active labor Plan OB labor note: continuous present management Comments: I came in to visit the patient to assess cervical change. There has been no cervical change and dilatation, distant, effacement for the last 16 hours. Patient developed a temp of 100.6 around oh over 30. Patient was treated with IV Tylenol and started on ampicillin 1 g every 4. Her last temperature was 98.6. heart rate is category 1 at this time with moderate variability and no decelerations CNM Management MD Consulted (describe details below): Yes Details of MD consultation: Reevaluated cervix at 0800 and then there will be a discussion about moving towards section History of Present Illness HPI 24-year-old 1 para 0 admit to labor and delivery for induction of labor. Patient was initially followed at Dr. oLrenzo office. And transferred around 29 weeks. Patient is O+, antibody screen negative, RPR nonreactive, rubella immune, hepatitis B negative, hep C negative, HIV negative, GC and Chlamydia were negative. NIPT screen negative. Rubella immune. GBS negative. She had abnormal 1 hour GTT and 3-hour was abnormal as well. So patient is been followed with GDM diet and monitoring glucose. Denies social habits. Denies surgery. Denies current
--- NOTE | 2025-03-12 06:31 | ESPR_ITS ---
Documentation for date of: 03/12/25 OB Labor Progress Note Pain Control Pain control: tolerating well Comments: Called the patient's room. Patient decided that she would like to go ahead and proceed forward with primary section now Pelvic Exam Dilation (cm): 4.5 Effacement (%): 80/swollen station: -2 Amniotic membrane status: Ruptured Contractions Monitor mode: Internal Contraction frequency: 4 Contraction pattern: Tachysystole Contraction phase: Resting Contraction intensity: Moderate Status status: Category l Assessment and Plan Plan OB labor note: CNM Management MD Consulted (describe details below): Yes Details of MD consultation: Called OB today discussed patient's agreement to section. Patient is going to be scheduled for today History of Present Illness HPI 24-year-old 1 para 0 admit to labor and delivery for induction of labor. Patient was initially followed at Dr. Lorenzo office. And transferred around 29 weeks. Patient is O+, antibody screen negative, RPR nonreactive, rubella immune, hepatitis B negative, hep C negative, HIV negative, GC and Chlamydia were negative. NIPT screen negative. Rubella immune. GBS negative. She had abnormal 1 hour GTT and 3-hour was abnormal as well. So patient is been foll owed with GDM diet and monitoring glucose. Denies social habits. Denies surgery. Denies current
[2025-03-12] MEDS: ceFAZolin/D5W 2 GM IV 2 GM/100 ML BAG IV (07:13)
[2025-03-12] MEDS: METOCLOPRAMIDE INJ 5 MG/ML VIAL 2 ML 10 MG IVP (07:13)
[2025-03-12] MEDS: FAMOTIDINE INJ 10 MG/ML VIAL 2 ML 20 MG IV (07:14)
--- NOTE | 2025-03-12 07:28 | PD.LDPN ---
Documentation for date of: 03/12/25 OB Labor Progress Note Pain Control Pain control: tolerating well and epidural Pelvic Exam Dilation (cm): 4.5 Effacement (%): 80/swollen station: -2 Amniotic membrane status: Ruptured Contractions Monitor mode: Internal Contraction frequency: 5-6 Contraction pattern: Tachysystole Contraction phase: Resting Contraction intensity: Mild Status status: Category l Assessment and Plan Pitocin rate (mU/min): 12 Plan OB labor note: Comments: Pitocin augmentation discontinued before I came to see the patient today. Proceed with primary low-transverse section for arrest of dilation CNM Management MD Consulted (describe details below): Yes Details of MD consultation: Patient has been consented for repeat low-transverse section with an official track repair person in [place]. She understands the risks of the procedure including the risk of bleeding, infection, blood transfusion, damage to bowel, bladder, blood vessels, other organs. Prolonged hospital stay further surgery should any above occur. All questions were answered all consents were signed. History of Present Illness HPI The patient is a 24-year-old G1, P0 with all care started with Dr. Lorenzo transferred to Kisha Albrecht CNM who is being induced for gestational diabetes, diet-controlled. When I left the morning of 03/11/2025, the patient was 2 cm dilated. She was managed by Kisha all day and backed up by Dr. Umanzor. Patient had epidural placed and Pitocin augmentation begun. She got up to 12 milliunits/min of Pitocin and failed to make progress past 4 cm for greater than 12 hours. The decision was made to proceed with primary low-transverse section. The patient was signed out to me at 7:00 in the morning 03/12/2025. Patient has been consented for a .
--- NOTE | 2025-03-12 08:21 | PD.LDDELS ---
Data (Bernal) Data Hx Section: No Reason for Primary Section: Arrest of dilation at 4 cm Maternal Blood Type: O Pos Rubella Titre: Positive RPR: Non-reactive Labs: Negative: RPR, Hepatitis B, HIV, Chlamydia, Gonorrhea and Group Beta Strep : 1 Term: 0 : 0 Livin Abortions: Spontaneous & Theraputic: 0 Delivery Data (Bernal) Labor Data Initiation of labor: Induction Induction/Augmentation Agent: Pitocin ROM date: 03/11/25 ROM time: 14:48 Amniotic membrane rupture type: Spontaneous Amniotic fluid description: Clear Delivery Data EDC: 03/13/25 EDC calculated by:: LMP/early US confirmation Date of arrival to unit: 03/10/25 [place] delivery date: 03/12/25 delivery time: 07:52 Gestational age (weeks): 39 Gestational age (days): 6 Placenta delivery date: 03/12/25 Placenta delivery time: 07:53 Delivered by: Kimberley Gleason ([facility] Clinic) Delivery nurse: Vane Reddy nurse: Yoselyn Mathew Musical Instrument Maker at delivery: No Support person(s) at delivery: FOB Delivery Method Delivery method: Low Transverse Presentation: Vertex position: OA Anesthesia Type Anesthesia Type: Epidural Delivery Room Medications Delivery room medications: Methergine 0.2 mg IM, Pitocin 20 u IV and Cytotec 800 ND (600 ND) Placenta Placenta delivery description: Manual Removal Cord blood sent to lab: Yes cord blood collection: Cord Blood Type Episiotomy Episiotomy description: None EBL Estimated blood loss (ml): 500 Umbilical Cord cord description: 3 Vessels Additional Procedures The op report for further details Complications Complications: None Data (Bernal) Data 's gender: Male Identification band number: [id number] weight (gms): 3450 g Weight (pounds): 7 lbs and 9.7 ozs [place] length: 51.5 cm 1 minute: 8 5 minutes: 9
--- NOTE | 2025-03-12 08:27 | ESOP_ITS ---
Operative Note - INDUCTION HEAT TREATER Procedure Date of procedure: 03/12/25 Procedure Performed: Primary low-transverse section Indication: The patient is a 24-year-old admitted 03/10/2025 for scheduled induction of labor by Kisha Albrecht CNM for diet-controlled gestational diabetes at 39 weeks. She had Cytotec AROM eventually epidural, IUPC, and Pitocin augmentation up to 12 milliunits/min. Patient failed to make progress post 4 cm for greater than 12 hours and was consented for a primary low-transverse section for arrest of dilatation at 4 cm. Pre-Op diagnosis: 1. IUP 39-6/7 weeks 2. Status post induction of labor for diet-controlled gestational diabetes 3. Arrest of dilation at 4 cm 4. Group B strep negative Post-Op diagnosis: Same Anesthesia type: Epidural (Bolused epidural) Procedure description: After obtaining informed consent through an official fabricating machine operator, the patient was brought back to the operating room and her epidural was bolused to obtain excellent anesthesia. She was then prepped and draped in the dorsal supine position with a leftward tilt in a normal sterile fashion. A Christine catheter had been inserted during the patient's labor. The patient was given 2 g of Ancef IV by anesthesia. A Pfannenstiel skin incision was made with a scalpel and carried down to the underlying fascia. The fascia was incised the midline, and the fascial incision extended laterally using Lugo scissors. The superior aspect of the fascia was grasped with Ita clamps and the underlying rectus muscles dissected off using blunt and sharp dissection. This was repeated in the inferior aspect of the incision. The rectus muscles were in the midline and the peritoneum was picked up and entered sharply with Metzenbaums. This was extended superiorly and inferiorly with good visualization of the bladder. The bladder blade was inserted and the uterus was incised in a low transverse fashion using a scalpel above the bladder reflection. The uterine incision was extended laterally using blunt dissection with surgeon's fingers. The bag cornejo was ruptured, and clear fluid was noted. The bladder blade was removed, and the infant was delivered atraumatically in a vertex presentation. The was vigorous at , and delayed cord clamping was performed for 30 seconds to a minute. The cord was clamped and cut and the was handed off to the waiting pediatric staff. Cord gases were saved. Cord blood was sent. The placenta was then manually removed, and the uterus was exteriorized and cleared of all clots and debris. The uterine incision was repaired using 0 Monocryl in a running locked fashion. Excellent hemostasis was noted. The uterus was returned to the patient's abdominal cavity, and copious irrigation carried out with warm normal saline. The uterine incision was reexamined and noted to be hemostatic. As the uterus was a little boggy, IM Methergine was called for and given. After ensuring the rectus muscles were hemostatic these were reapproximated using running suture of 0 Monocryl. The fascia was closed with 0 Vicryl in a running fashion. The subcutaneous tissues were irrigated found to be hemostatic, these were reapproximated using a couple of [id number] sutures of 2-0 plain. The skin was closed with a subcuticular suture of 4-0 Monocryl and a Dermabond dressing. The patient tolerated the procedure well, sponge, lap, needle, and instrument counts were correct x 2. The patient went to recovery awake and in stable condition. Of note the baby was with mom and dad in stable condition. Of note, since the lower uterine segment was slightly boggy, 600 mcg of Cytotec were placed rectally prior to leaving the operating room. Fluids: crystalloid Fluid amount (mL): 2,000 Urine output (mL): 150 Specimen: none Implants: None Estimated blood loss (ml): 500 Findings: Liveborn male in the OA presentation with no nuchal cord or meconium Apgars were 8 and 9 weight was 3450 g. Time of 0752. Weight 7 pounds 10 ounces. Uterus normal tubes ovaries normal. Complications: none Surgical staff Operation Date: 03/12/25 07:45 Case Staff PRINTED CIRCUIT PHOTOGRAPHER: Donald Morgan RN First Assistant: Mirela Parrish Diagnosis Discharge Diagnosis (1) Diet controlled gestational diabetes mellitus (GDM) in third trimester: Status: Acute (2) care following delivery: Status: Acute Problem List Completed Was Problem List Reviewed/Reconciled?: Yes
[2025-03-12] MEDS: KETOROLAC INJ 30 MG/ML VIAL IVP ×2 (09:55→15:43)
[2025-03-12] MEDS: MEPERIDINE INJ 50 MG/ML VIAL IM (11:01)
[2025-03-12] MEDS: ceFAZolin/D5W 1 GM IVPB 1 GM/50 ML BAG IV ×2 (14:02→22:35)
[2025-03-12] MEDS: METHYLERGONOVINE INJ 0.2 MG/ML VIAL IM (14:04)
[2025-03-12] MEDS: OXYTOCIN in NS 20 units 20 UNIT/1,000 ML BAG 125 UNIT IV (16:24)
[2025-03-12] MEDS: HYDROcodone/APAP 5/325 TABLET 2 TAB PO (19:39)
[2025-03-12] MEDS: SIMETHICONE 80 MG CHEW PO (19:39)
[2025-03-13 00:42] VITALS: BP 100/62; PULSE 80; RESP 20; TEMP 36.7; O2SAT 98
[2025-03-13] MEDS: HYDROcodone/APAP 5/325 TABLET 2 TAB PO ×2 (01:48→10:12)
[2025-03-13] MEDS: SIMETHICONE 80 MG CHEW PO ×2 (01:48→21:12)
[2025-03-13 04:45] VITALS: BP 95/57; PULSE 80; RESP 14; TEMP 36.7; O2SAT 97
[2025-03-13 05:38] LABS: Basophils # (Auto) 0.0 Thou/mm3 (0.0-0.2); Basophils % (Auto) 0 % (0-2.5); Eosinophils # (Auto) 0.0 Thou/mm3 (0.0-0.5); Eosinophils % (Auto) 0 % (0-10); Hematocrit 26.3 % (36.0-46.0); Immature Granulocytes Auto 0.05 Thou/mm3 (0.00-0.00); Lymphocytes # (Auto) 1.6 Thou/mm3 (1.0-4.8); Lymphocytes % (Auto) 14 % (10-50); Mean Corpuscular HGB Conc 32.3 g/dl (31.0-37.0); Mean Corpuscular Hemoglobin 25.6 pg (25.0-35.0); Mean Corpuscular Volume 79 fL (80-100); Monocytes # (Auto) 0.6 Thou/mm3 (0.0-0.8); Monocytes % (Auto) 5 % (0-12); Neutrophils # (Auto) 9.7 Thou/mm3 (1.8-7.7); Neutrophils % (Auto) 81 % (37-80); Nucleated Red Blood Cell # 0.02 Thou/mm3 (0.00-0.00); Nucleated Red Blood Cell % 0 /100 WBC (0); Platelet Count 216 Thou/mm3 (140-440); RDW Standard Deviation 45.1 fL (36.4-46.3); Red Blood Count 3.32 Miln/mm3 (4.00-5.20); White Blood Count 12.0 Thou/mm3 (3.6-11.0)
[2025-03-13 05:53] LABS: Hemoglobin 8.5 g/dL (12.0-16.0)
[2025-03-13] MEDS: ceFAZolin/D5W 1 GM IVPB 1 GM/50 ML BAG IV (06:35)
[2025-03-13] MEDS: DOCUSATE SOD 100 MG CAPSULE PO (07:49)
[2025-03-13 08:00] VITALS: BP 101/65; PULSE 65; RESP 16; TEMP 36.7; O2SAT 98
--- NOTE | 2025-03-13 09:42 | PD.LDPPPRG ---
Subjective Subjective Interval history: Delivery type: for failure to progress Patient doing well this morning. No acute complaints. Ambulating, tolerating p.o., and voiding without difficulty. HTN/Pre-E screen negative: No CP, SOB, BRUCE, visual changes, RUQ pain. : Yes Lochia: diminishing Bowel: Flatus + / BM + UOP: Adequate Exam Vital Signs Temp Pulse Resp BP Pulse Ox O2 Del Method 98.1 F 65 16 101/65 98 Room Air 03/13/25 08:00 03/13/25 08:00 03/13/25 08:00 03/13/25 08:00 03/13/25 08:00 03/13/25 08:00 Constitutional Constitutional: no acute distress Routine HEENT Exam Head: Present normocephalic and atraumatic Eye: Present EOMI and PERRL ENT: Present mucous membranes moist Routine Neck Exam Neck: Present supple and trachea midline Routine Respiratory Exam Respiratory: Present chest non-tender, lungs clear, normal breath sounds and no resp distress Routine Cardiovascular Exam Cardiovascular: Present RRR Routine Abdominal Exam Abdominal: Present soft and normoactive bowel sounds Routine Extremities Exam Extremities: Present full ROM Routine Skin Exam Skin: Present intact, dry and warm Routine Neurological Exam Neurological: Present alert, oriented X3 and CN II-XII intact Routine Psychiatric Exam Psychiatric: Present normal affect and normal thought process Objective Labs 03/13/25 04:42 Labs: Laboratory Results - last 24 hr 03/13/25 04:42 WBC 12.0 H D RBC 3.32 L Hgb 8.5 L Hct 26.3 L MCV 79 L MCH 25.6 MCHC 32.3 RDW Std Deviation 45.1 Plt Count 216 D Neut % (Auto) 81 H Lymph % (Auto) 14 [place] % (Auto) 5 Eos % (Auto) 0 Baso % (Auto) 0 Neut # (Auto) 9.7 H Lymph # (Auto) 1.6 [place] # (Auto) 0.6 Eos # (Auto) 0.0 Baso # (Auto) 0.0 Immature Gran # (Auto) 0.05 H Absolute Nucleated RBC 0.02 H Immature Gran % 0 Nucleated RBC % 0 Assessment & Plan Problem List (1) Diet controlled gestational diabetes mellitus (GDM) in third trimester: Status: Acute (2) care following delivery: Status: Acute Assessment and plan: Assessment: PostOp Day #: 1 Maternal condition: Stable Plan: General: Stable, afebrile. Continue routine monitoring. Encourage ambulation and incentive spirometry. HEENT/Cardiac/Respiratory: Hemodynamically stable. Monitor vitals. No chest pain or shortness of breath. GI: Tolerating diet, flatus/BM as documented. Bowel regimen: Colace / Senna / Miralax PRN : Voiding spontaneously / Christine to gravity (remove when ambulating). Monitor urine output and lochia. Hematology: H/H pending / reviewed. Iron supplementation: [PO ferrous sulfate / IV if indicated]. Transfusion if Hb < 7 and symptomatic. Incision/Perineum: Vaginal: Perineum healing well Wound care: Keep clean and dry. Monitor for signs of infection. Breast: support as needed. Nipple care with lanolin / warm compresses PRN. Pain Control: Multimodal pain control: [Acetaminophen + NSAID ? Narcotics PRN]. Continue routine post-op analgesia schedule. DVT Prophylaxis: Early ambulation. SCDs while in bed. Infection Prophylaxis: Afebrile. No antibiotics indicated unless otherwise noted. Psych: Mood stable. Monitor for depression symptoms. [place] Depression Scale prior to discharge. Contraception: Discuss prior to discharge/ in office Disposition: Continue inpatient monitoring. Anticipate discharge on day 2 if clinically stable. Routine precautions reviewed. Follow-up: 2 week wound check & 6-week visit. Time Spent With Patient Time: Total time spent is greater than 50% in coordination of care (as documented) at patient's floor/unit and/or counseling patient:
[2025-03-13 11:35] VITALS: BP 104/60; PULSE 79; RESP 18; TEMP 37; O2SAT 97
[2025-03-13] MEDS: HYDROcodone/APAP 5/325 TABLET 1 TAB PO (19:33)
[2025-03-13 19:38] VITALS: BP 103/64; PULSE 79; RESP 17; TEMP 36.9; O2SAT 99
[2025-03-14] MEDS: HYDROcodone/APAP 5/325 TABLET 1 TAB PO ×3 (00:59→14:40)
[2025-03-14 06:01] VITALS: BP 98/62; PULSE 72; RESP 20; TEMP 36.8; O2SAT 98
[2025-03-14 08:00] VITALS: BP 106/63; PULSE 71; RESP 18; TEMP 36.7; O2SAT 98
[2025-03-14] MEDS: DOCUSATE SOD 100 MG CAPSULE PO (08:36)
--- NOTE | 2025-03-14 12:22 | PD.LDPPPRG ---
Subjective Subjective Interval history: Delivery type: Patient doing well this morning. No acute complaints. Ambulating, tolerating p.o., and voiding without difficulty. HTN/Pre-E screen negative: No CP, SOB, BRUCE, visual changes, RUQ pain. : Yes Lochia: diminishing Bowel: Flatus + / BM + UOP: Adequate Exam Vital Signs Temp Pulse Resp BP Pulse Ox O2 Del Method 98.1 F 71 18 106/63 98 Room Air 03/14/25 08:00 03/14/25 08:00 03/14/25 08:00 03/14/25 08:00 03/14/25 08:00 03/14/25 08:00 Constitutional Constitutional: no acute distress Routine HEENT Exam Head: Present normocephalic and atraumatic Eye: Present EOMI and PERRL ENT: Present mucous membranes moist Routine Neck Exam Neck: Present supple and trachea midline Routine Respiratory Exam Respiratory: Present chest non-tender, lungs clear, normal breath sounds and no resp distress Routine Cardiovascular Exam Cardiovascular: Present RRR Routine Abdominal Exam Abdominal: Present soft and normoactive bowel sounds Routine Extremities Exam Extremities: Present full ROM Routine Skin Exam Skin: Present intact, dry and warm Routine Neurological Exam Neurological: Present alert, oriented X3 and CN II-XII intact Routine Psychiatric Exam Psychiatric: Present normal affect and normal thought process Objective Labs 03/13/25 04:42 Assessment & Plan Problem List (1) Diet controlled gestational diabetes mellitus (GDM) in third trimester: Status: Acute (2) care following delivery: Status: Acute Assessment and plan: PPD/POD#2 1. Continue routine care 2. Transition to PO meds. 3. Encourage to ambulate/ breast-feed 4. Anticipate discharge home today. Time Spent With Patient Time: Total time spent is greater than 50% in coordination of care (as documented) at patient's floor/unit and/or counseling patient:
--- NOTE | 2025-03-14 12:23 | PD.LDDS ---
DS: Providers Provider Date of admission: 03/10/25 15:09 Primary care physician: Physician No Primary/Family Admitting Provider: Kisha Albrecht CNM Attending Provider on Admission: Tyrone Walker MD Consults: 03/12/25 08:18 Referral Routine Comment: Attending Provider on DC: Tyrone Walker MD Discharging Provider: Tyrone Walker MD DS: Diagnosis Discharge Diagnosis (1) care following delivery: Status: Acute (2) Encounter for induction of labor: Status: Acute (3) Diet controlled gestational diabetes mellitus (GDM) in third trimester: Status: Acute Problem List Completed Was Problem List Reviewed/Reconciled?: Yes Summary/Hosp Course Brief History: The patient is a 24-year-old G1, P0 with all care started with Dr. Lorenzo transferred to Kisha Albrecht CNM who is being induced for gestational diabetes, diet-controlled. When I left the morning of 03/11/2025, the patient was 2 cm dilated. She was managed by Kisha all day and backed up by Dr. Umanzor. Patient had epidural placed and Pitocin augmentation begun. She got up to 12 milliunits/min of Pitocin and failed to make progress past 4 cm for greater than 12 hours. The decision was made to proceed with primary low-transverse section. The patient was signed out to me at 7:00 in the morning 03/12/2025. Patient has been consented for a . Peripartum Data Delivery Method: Low Transverse Episiotomy Description: None Procedures: Procedures Operation Date: 03/12/25 07:45 Actual Procedure Side Surgeon p in OB Bilateral Kimberley Gleason (OB Clinic)MD Time Spent with Patient Time attestation: Total time spent providing and/or coordinating discharge services: Exam Vital Signs Temp Pulse Resp BP Pulse Ox O2 Del Method 98.1 F 71 18 106/63 98 Room Air 03/14/25 08:00 03/14/25 08:00 03/14/25 08:00 03/14/25 08:00 03/14/25 08:00 03/14/25 08:00 Discharge Plan Plan Patient Disposition: HOME (Self Care) Patient condition on transfer: Stable Prescriptions/Referrals Prescriptions/Med Rec: New hydrocodone-acetaminophen 5-325 mg tablet 1 tab PO Q6H MDD 4 PRN (Reason: pain) 5 Days Qty: 20 0RF docusate sodium [Stool Softener] 100 mg capsule 100 mg PO QDAY 30 Days Qty: 30 0RF ibuprofen 600 mg tablet 600 mg PO Q6H MDD 4 PRN (Reason: fever or pain) 10 Days Qty: 40 0RF Continued (DME) blood-glucose meter Kit See Rx Instructions .MEDSUPPLY Qty: 1 0RF Rx Instructions: As directed (DME) Blood Glucose Test Strip See Rx Instructions .MEDSUPPLY Qty: 10 0RF Rx Instructions: As directed (DME) lancets Misc See Rx Instructions .MEDSUPPLY Qty: 100 0RF Rx Instructions: As directed Referrals: Tyrone Walker MD [Physician, RECONCILIATION SPECIALIST] No Primary/Family,Physician [Primary Care Provider] Patient/Caregiver Discharge Instructions Meds to Beds: Yes Education Materials: After a , C Section Dc Print Language: Luxembourgish Stand Alone Forms: Maria M Award Info., Patient Portal Info Letter, DC from Surgery Discharge Order Discharge Orders: Discharge (Routine); Ordered 03/14/25 Ordered By: Tyrone Walker Planned Discharge Date 03/14/25
[2025-03-14 12:30] VITALS: BP 97/67; PULSE 68; RESP 18; TEMP 36.6; O2SAT 97
== END 2025-03-14 16:10 | disposition home or self-care (01) | DRG 540 ==
LOC: S4SX 03-12 06:46 → S4NX 03-12 08:02
PROVIDERS: Obstetrics & Gynecology; Admitting Provider Advanced Practice Midwife; Visit Provider Obstetrics & Gynecology
PROC: (CPT 59514; principal; 2025-03-12 07:30)
DX: O34.211 Maternal care for low transverse scar from previous cesarean delivery (principal); Z37.0 Single live birth; Z3A.39 39 weeks gestation of pregnancy; O62.0 Primary inadequate contractions; O24.420 Gestational diabetes mellitus in childbirth, diet controlled
CPT/HCPCS: 36415; 59409; 76805; 85025; 86780; 86850; 86900; 86901; 94762; A4217; A4314; A4649; J0131; J0290; J0689; J1885; J2175; J2210; J2250; J2590; J2704; J2765; J2795; J3010; J3105; J3490; J7120; S0191; A9270

== ENCOUNTER 2025-03-21 11:39 | Outpatient (AMB) | payer MEDICAID, SELFPAY ==
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
[2025-03-21 11:47] VITALS: BP 106/69; PULSE 60; RESP 18; TEMP 36.6; O2SAT 98; BMI 26.0
== END 2025-03-21 11:49 | disposition home or self-care (01) ==
LOC: HODSOBC 11:39
PROVIDERS: PCP Obstetrics & Gynecology; Referring Provider Obstetrics & Gynecology; Supervising Provider Obstetrics & Gynecology; Visit Provider Obstetrics & Gynecology
DX: Z39.2 Encounter for routine postpartum follow-up (principal); Z86.32 Personal history of gestational diabetes
CPT/HCPCS: 59425; 99213; G0463

== ENCOUNTER 2025-04-04 08:43 | Inpatient (IN) | payer MEDICAID, SELFPAY ==
[2025-04-04] VITALS (12 sets, daily range): BP systolic 99–110; BP diastolic 56–67; PULSE 82–115; RESP 18–23; TEMP 36.2–38.7; O2SAT 97–100; BMI 26.8
--- NOTE | 2025-04-04 09:06 | XR_ITS ---
EXAMINATION: PA lateral chest 2 views TECHNIQUE: Upright PA lateral chest 2 views Date and time: April 04, 2025, 0931 hours INDICATIONS: Chest pain today FINDINGS: Normal heart size Lungs are clear. Osseous structures intact IMPRESSION: No active disease
--- NOTE | 2025-04-04 09:25 | EDRME_ITS ---
Rapid Medical Screening Exam [facility] Arrival date/time: 04/04/25 08:43 24-year-old female with no known medical history presents to the emergency room with a chief complaint of headache and right breast pain x 2 days. Patient recently had a delivery last month. She is currently breast-feeding. I have greeted and performed a focused initial assessment of this patient. A comprehensive ED assessment and evaluation of the patient, analysis of all test results, and completion of the medical decision making process will be conducted by additional ED providers. Chief Complaint: General Adult/Misc Complain Time Seen by Provider: 04/04/25 08:45 Vital signs: Vital Signs Temperature 101.7 F H 04/04/25 08:54 Pulse Rate 115 H 04/04/25 08:54 Respiratory Rate 18 04/04/25 08:54 Blood Pressure 99/62 04/04/25 08:54 Pulse Oximetry (%) 98 04/04/25 08:54 Oxygen Delivery Method Room Air 04/04/25 08:54 Vital signs reviewed by provider: Yes Exam: Clear oropharynx Clear bilateral lung sounds. No rhinorrhea, no URI signs or symptoms Clinical Impression: Mastitis/sepsis
[2025-04-04 09:32] LABS: Lactate (Lactic Acid) 2.1 mMol/L (0.4-2.0)
[2025-04-04 09:35] LABS: Basophils # (Auto) 0.0 Thou/mm3 (0.0-0.2); Basophils % (Auto) 0 % (0-2.5); Eosinophils # (Auto) 0.0 Thou/mm3 (0.0-0.5); Eosinophils % (Auto) 0 % (0-10); Hematocrit 35.8 % (36.0-46.0); Hemoglobin 11.5 g/dL (12.0-16.0); Immature Granulocytes Auto 0.06 Thou/mm3 (0.00-0.00); Lymphocytes # (Auto) 1.1 Thou/mm3 (1.0-4.8); Lymphocytes % (Auto) 8 % (10-50); Mean Corpuscular HGB Conc 32.1 g/dl (31.0-37.0); Mean Corpuscular Hemoglobin 25.3 pg (25.0-35.0); Mean Corpuscular Volume 79 fL (80-100); Monocytes # (Auto) 0.5 Thou/mm3 (0.0-0.8); Monocytes % (Auto) 3 % (0-12); Neutrophils # (Auto) 13.1 Thou/mm3 (1.8-7.7); Neutrophils % (Auto) 89 % (37-80); Nucleated Red Blood Cell # 0.00 Thou/mm3 (0.00-0.00); Nucleated Red Blood Cell % 0 /100 WBC (0); Platelet Count 310 Thou/mm3 (140-440); RDW Standard Deviation 47.3 fL (36.4-46.3); Red Blood Count 4.55 Miln/mm3 (4.00-5.20); White Blood Count 14.8 Thou/mm3 (3.6-11.0)
[2025-04-04 10:02] LABS: Influenza A Ag Negative; Influenza B Ag Negative
[2025-04-04 10:04] LABS: Alanine Aminotransferase 18 U/L (10-49); Albumin, Serum 4.8 gm/dL (3.5-5.0); Anion Gap 12 (7-16); Aspartate Amino Transferase 18 U/L (0-34); BUN/Creatinine Ratio 18 Ratio (12-20); Bilirubin,Total 0.4 mg/dL (0.3-1.2); Blood Urea Nitrogen 11 mg/dL (9-23); Calcium 9.3 mg/dL (8.3-10.6); Calcium (Corrected) 9.3 mg/dL (8.5-10.1); Carbon Dioxide 21.5 mMol/L (20.0-31.0); Chloride 104 mMol/L (98-107); Creatinine (Component) 0.6 mg/dL (0.6-1.3); Estimated Creatinine Clearance 110.2 mL/min (>60); Glucose 100 mg/dL (74-106); Osmolality,Calculated 273 (275-295); Potassium 4.0 mMol/L (3.4-5.1); Sodium 137 mMol/L (136-145); Total Protein 7.6 gm/dL (5.7-8.2); eGFR > 60 See Note
[2025-04-04 10:05] LABS: Albumin/Globulin Ratio 1.7 (1.2-2.2); Alkaline Phosphatase 129 U/L (46-116); Globulin 2.8 gm/dL (2.3-3.5); Procalcitonin 0.12 ng/ml (0.0-0.49)
--- NOTE | 2025-04-04 10:05 | XR_ITS ---
Examination: Breast ultrasound limited, right Date and time of exam: April 04, 2025, 1130 hours INDICATIONS: Right breast pain beginning 2 days ago Technique: Real time puckett scale ultrasonographic imaging of the breast , retroarelar and axillary region. Findings: Retroareolar 5:00 mass most likely abscess 4.2 x 1.6 x 3.8 cm Impression: Findings most consistent with large breast abscess short-term follow-up breast imaging is strongly advised
[2025-04-04] MEDS: KETOROLAC INJ 30 MG/ML VIAL IVP (10:22)
[2025-04-04] MEDS: ACETAMINOPHEN IVPB 1,000 MG/100 ML VIAL 250 MG IV (10:24)
[2025-04-04 10:33] LABS: Collection Type, Urine Clean Catch
[2025-04-04] MEDS: cefTRIAXone/D5w 1gm IV premix 1 GM/50 ML BAG IV (10:33)
[2025-04-04 10:43] LABS: Bilirubin,Urine Negative (Negative); Blood,Urine 1+ (Negative); Clarity,Urine Clear (Clear/Hazy); Color,Urine Lt-Yellow (Lt Yel-Yel); Glucose, Urine Negative (Negative); Ketones,Urine Negative (Negative); Leukocyte Esterase,Urine Negative (Negative); Nitrite,Urine Negative (Negative); PH,Urine 6.0 (5.0-7.0); Protein,Urine Negative (Neg - Trace); RBC,Urine 6 /hpf (0-3); Specific Gravity,Urine 1.026 (1.001-1.035); Squamous Epithelial Cell,Urine 1 /hpf (0-5); Urobilinogen,Urine Negative mg/dL (0.0-1.0); WBC,Urine 1 /hpf (0-5)
[2025-04-04] MEDS: RINGERS LACTATED 1000 ML 1,000 ML 999 ML IV (10:57)
--- NOTE | 2025-04-04 12:13 | PD.EDHA ---
ED Headache RME/HPI General Chief Complaint: General Adult/Misc Complain Stated Complaint: BREAST HURT AND HEADACHE Time Seen by Provider: 04/04/25 08:45 Arrival date/time: 04/04/25 08:43 RME / HPI RME / HPI Narrative: 04/04/25 08:43 24-year-old female with no known medical history presents to the emergency room with a chief complaint of headache and right breast pain x 2 days. Patient recently had a delivery last month. She is currently breast-feeding. I have greeted and performed a focused initial assessment of this patient. A comprehensive ED assessment and evaluation of the patient, analysis of all test results, and completion of the medical decision making process will be conducted by additional ED providers. DR. RENDON MAIN ED EVALUATION 24-year-old female presenting with right breast pain, headache, and fever that began yesterday. She is currently and has a history of section on 2025-03-12. Patient denies other symptoms. Exam: Clear oropharynx Clear bilateral lung sounds. No rhinorrhea, no URI signs or symptoms Impression: Mastitis/sepsis Related Data Home Medications ?Medication ?Instructions ?Recorded ?Confirmed No Known Home Medications 04/04/25 04/04/25 Allergies Allergy/AdvReac Type Severity Reaction Status Date / Time No Known Allergies Allergy Verified 04/04/25 08:47 Review of Systems Review of Systems Systems Reviewed: All systems reviewed, normal except as documented Past Medical History Past Medical History ENDOCRINE: Positive Endocrine Disorders Social History SMOKING STATUS: Never smoker SECOND HAND EXPOSURE: Yes ED Exam Narrative Physical exam: General: Appears uncomfortable, febrile, shivering at times. Eyes: Appear normal with no scleral icterus. HENT: Atraumatic. Moist mucous membranes, no pharyngeal erythema, edema or lesions. Neck: Atraumatic, supple. Cardiac: Mildly tachycardic. Respiratory: No respiratory distress, clear lungs bilaterally with no abnormal breath sounds. Abdomen: Abdominal exam is normal. MS: Right breast induration at approximately 5 o'clock position. Skin: Skin is hot to touch, but otherwise dry and intact. Back: Atraumatic. Neurologic: No altered mental status, speech is fluent. Gait is within normal limits. No cerebellar deficits. No motor deficits. No sensory deficits. Psychological: Cooperative and participatory with examination. Course Course Course Narrative: 1258h: Spoke with surgery regarding patient's breast ultrasound findings. Dr Barrientos currently in OR and will be down to discuss further once complete. Pts breast abscess with the following findings: Retroareolar 5:00 mass most likely abscess 4.2 x 1.6 x 3.8 cm. Impression: Findings most consistent with large breast abscess short-term follow-up breast imaging is strongly advised 1325h: I spoke with surgeon Dr. Barrientos. Discussed patients PMHx, HPI, ED course, exam findings, labs, and radiology results. Recommends antibiotics. Will see patient. 1328h: I spoke with hospitalist team A for admission. Quality Measures Current suspected stage: sepsis Possible source: skin/soft tissue Blood cultures ordered: completed in ED Antibiotic ordered: Yes Pertinent labs: 04/04/25 04/04/25 09:20 13:10 Lactic Acid 2.1 H mMol/L 1.0 mMol/L (0.4-2.0) (0.4-2.0) Procalcitonin 0.12 ng/ml (0.0-0.49) sepsis Orders Category Date Time Status Admit to Inpatient Status Routine Admission 04/04/25 14:23 Active Patient Condition Routine Admission 04/04/25 14:23 Ordered Bedside COVID-19 Antigen Test NOW Care 04/04/25 09:06 Active COVID-19 Screening Questionnaire NOW Care 04/04/25 13:28 Active Decision to Admit X1 Care 04/04/25 13:28 Completed Notify provider NEEDED Care 04/04/25 14:23 Active US breast RT limited Stat Exams 04/04/25 10:05 Completed XR chest 2V Stat Exams 04/04/25 09:06 Completed Blood Culture (Lab) Stat Lab 04/04/25 09:15 Received CBC Stat Lab 04/04/25 09:20 Completed CMP [Comprehensive Metabolic Panel] Stat Lab 04/04/25 09:20 Completed Influenza A & B Rapid Panel Stat Lab 04/04/25 09:15 Completed Lactate (Lactic Acid) Stat Lab 04/04/25 09:20 Completed Lactic Acid, 3 HR Stat Lab 04/04/25 13:10 Completed Procalcitonin Stat Lab 04/04/25 09:20 Completed UA [Urinalysis] Stat Lab 04/04/25 10:10 Completed Urine Culture Stat Lab 04/04/25 10:10 Received Acetaminophen Ivpb [Ofirmev Inj] Med 04/04/25 10:05 Discontinued 1,000 mg in 100 ml IV NOW Acetaminophen Tab [Tylenol Tab] Med 04/04/25 09:06 Discontinued 650 mg PO X1 ONE Ketorolac Inj [Toradol Inj] Med 04/04/25 10:05 Discontinued 30 mg IVP X1 ONE Ringers Lactated 1000 ml [Lactated Ringers] 1,000 ml Med 04/04/25 10:05 Discontinued IV 999 mls/hr cefTRIAXone/D5w 1gm IV premix [Rocephin/D5w 1gm IV Med 04/04/25 10:05 Discontinued premix] 1 gm in 50 ml IV X1 Code Status Routine Oth 04/04/25 14:23 Ordered Vital Signs Vital signs: Vital Signs Temperature 101.7 F H 04/04/25 08:54 Pulse Rate 115 H 04/04/25 08:54 Respiratory Rate 18 04/04/25 08:54 Blood Pressure 99/62 04/04/25 08:54 Pulse Oximetry (%) 98 04/04/25 08:54 Oxygen Delivery Method Room Air 04/04/25 08:54 Pulse ox is 98% on room air which is adequate. Headache Patient data External records reviewed:: [facility] previous records (I reviewed admission 03/11/2025 through 03/14/2025 and delivery record on 03/12/2025 ) Clinical information provided by:: patient Social determinants that could affect healthcare access:: none Patient has the following chronic illnesses:: s/p 03/12/2025 otherwise no chronic medical hx reported How is presenting disease/condition affected by chronic disease/condition?: no chronic disease Evaluation data The following diagnostics were reviewed and interpreted by me:: lab results and radiology exam(s) Lab and/or radiology exams considered but not ordered:: none Interpretation Summary: Ordering Physician: Deonte Marte Date of Service: 04/04/25 Procedure(s): XR chest 2V Accession Number(s): [id number] cc: Deonte Marte; Rahul Kincaid MD; NO PRIMARY/FAMILY,PHYSICIAN~ EXAMINATION: PA lateral chest 2 views TECHNIQUE: Upright PA lateral chest 2 views Date and time: April 04, 2025, 0931 hours INDICATIONS: Chest pain today FINDINGS: Normal heart size Lungs are clear. Osseous structures intact IMPRESSION: No active disease Dictated By: Rahul Kincaid MD Signed By: <Electronically signed by Rahul Kincaid MD in OV> 04/04/25 0946 Ordering Physician: Parvin Rendon MD Date of Service: 04/04/25 Procedure(s): US breast RT limited Accession Number(s): [id number] cc: Rahul Kincaid MD; Parvin Rendon MD; NO PRIMARY/FAMILY,PHYSICIAN~ Examination: Breast ultrasound limited, right Date and time of exam: April 04, 2025, 1130 hours INDICATIONS: Right breast pain beginning 2 days ago Technique: Real time puckett scale ultrasonographic imaging of the breast , retroarelar and axillary region. Findings: Retroareolar 5:00 mass most likely abscess 4.2 x 1.6 x 3.8 cm Impression: Findings most consistent with large breast abscess short-term follow-up breast imaging is strongly advised Dictated By: Rahul Kincaid MD Signed By: <Electronically signed by Rahul Kincaid MD in OV> 04/04/25 1152 Medications / Prescriptions Medications or Prescriptions considered but not ordered:: None Medication administrations:: Medication Administration History Acetaminophen (Acetaminophen 325 Mg Tablet) 650 mg PO Q6H PRN PRN Reason: Fever >100.4 or Pain 1-10 Stop: 05/04/25 15:52 Last Admin: 04/04/25 16:08 Dose: 650 mg Documented By: VINCENT Doxycycline Hyclate (Doxycycline 100 Mg Tablet) 100 mg PO BID RAINA Stop: 04/11/25 20:59 Ceftriaxone Sodium/Dextrose (Rocephin/D5w 1gm Iv Premix) 1 gm in 50 mls @ 100 mls/hr IV X1 ONE Stop: 04/05/25 09:29 Ondansetron HCl (Ondansetron Inj 2 Mg/Ml Inj 2 Ml) 4 mg IVP Q6H PRN; Protocol PRN Reason: NAUSEA OR VOMITING Stop: 05/04/25 15:52 Discontinued Medications Acetaminophen (Acetaminophen 325 Mg Tablet) 650 mg PO X1 ONE Stop: 04/04/25 09:07 Last Admin: 04/04/25 10:41 Dose: Not Given Documented By: SR Non-Admin Reason: Discontinued Lactated Ringer's (Lactated Ringers) 1,000 mls @ 999 mls/hr IV .Q1H1M ONE Stop: 04/04/25 11:05 Last Infusion: 04/04/25 12:14 Dose: Infused Documented By: Admin: 04/04/25 10:57 Dose: 999 mls/hr Documented By: SR Acetaminophen (Ofirmev Inj) 1,000 mg in 100 mls @ 250 mls/hr IV NOW ONE Stop: 04/04/25 10:28 Last Infusion: 04/04/25 10:48 Dose: Infused Documented By: Admin: 04/04/25 10:24 Dose: 250 mls/hr Documented By: SR Ceftriaxone Sodium/Dextrose (Rocephin/D5w 1gm Iv Premix) 1 gm in 50 mls @ 100 mls/hr IV X1 ONE Stop: 04/04/25 10:34 Last Infusion: 04/04/25 11:03 Dose: Infused Documented By: Admin: 04/04/25 10:33 Dose: 100 mls/hr Documented By: SR Influenza Virus Vaccine Quadrival (Influenza Virus 0.5 Ml Syringe ) 0.5 ml IMi .ONCE ONE Stop: 04/04/25 15:57 Ketorolac Tromethamine (Ketorolac Inj 30 Mg/Ml Vial) 30 mg IVP X1 ONE Stop: 04/04/25 10:06 Last Admin: 04/04/25 10:22 Dose: 30 mg Documented By: SR See above Consultations Consultation(s) initiated? (list below): Yes Consultation #1 (Physician, Specialty, Details): See course Diagnosis Differential diagnosis headache: headache and other (sepsis, breast abscess, cellulitis ) Most likely diagnosis given after review of the tests above:: Breast abscess Sepsis Mastitis Admission Indicated Admission indicated?: indicated Admission Request Was there a request for admission?: Yes Admission Attestation Admission request attestation: Discussed case with [] from Hospitalist service regarding admission. Discussed patients ED course, exam findings, labs, and radiology results. The Hospitalist [agrees,declines] to accept the patient for admission. Disposition Plan Disposition Plan: Admit Discharge Plan Plan Patient Disposition: Admit Acute Care w/in Hospital Problem List Clinical Impression: Breast abscess, Mastitis, Sepsis
[2025-04-04 12:29] LABS: Reflex Lactate? Y
[2025-04-04 13:16] LABS: Lactic Acid, 3 HR 1.0 mMol/L (0.4-2.0)
--- NOTE | 2025-04-04 14:15 | PC.NURSE ---
Surgeon at bedside assessing patient for possible right breast cyst surgery.
--- NOTE | 2025-04-04 14:28 | PC.NURSE ---
Resident at bedside assessing patient for admission, no new orders at this time.
--- NOTE | 2025-04-04 14:42 | ESHP_ITS ---
<Statement entered by Madiha Jones MD - 04/05/25 07:08> Patient was seen and examined by me personally. I have directly supervised and reviewed documentation by the team resident and agree with its findings with any exceptions or additional findings as below. Plan of care was discussed with the attending, Dr. Lux. Madiha Jones, PGY-3 Documentation for date of: 04/04/25 HPI History of Present Illness History of present illness: Patient is a Micronesian-speaking 24-year-old female with PMH of gestational diabetes and recent childbirth via on 03/12/25 who presented on 04/04/25 with a chief complaint of chest pain and headache . Of note, patient is currently . She says that her symptoms started yesterday evening and gestures towards her right breast with regards to her chest pain. She also endorses having fevers yesterday morning but denied having any other symptoms or complaints. On exam, an area of non-erythematous induration that was hot and tender to palpation was appreciated at the 4-5 o' clock position of the right breast. PMH: As above PSH: on 03/12/25 Medications: None Allergies: NKDA FH: None SH: None In the ED, vitals showed: BP 99/62 HR 115 RR 18 Temp 101.7 SpO2 98% on room air CBC showed WBC 14.8, Hgb 11.5 (MCV 79, RDW 47.3) but otherwise WNL. CMP showed lactic acid 2.1 (down-trended to 1.0 within 4 hours) but otherwise WNL. UA was bland. Serological studies negative for influenza A/B. Imagin/21 CXR unremarkable. 04/04 breast US showed a retroareolar 5:00 mass of dimensions 4.2 x 1.6 x 3.8 cm that is mostly likely an abscess. In the ED, patient was given Rocephin IV and 1 L IV LR bolus. Patient was admitted to Observation for the work-up and management of lactational peripheral right breast abscess. General Surgery (Dr. Jama) was consulted and recommended antibiotics and percutaneous aspiration of abscess by IR Review of Systems Review of Systems Systems Reviewed: All systems reviewed, normal except as documented Exam Vital Signs Temp Pulse Resp BP Pulse Ox O2 Del Method 98.7 F 95 18 103/59 L 100 Room Air 04/04/25 14:34 04/04/25 14:34 04/04/25 14:34 04/04/25 14:34 04/04/25 14:34 04/04/25 14:34 Narrative Exam General: A/O x3, no acute distress. Head: Normocephalic, atraumatic. Eyes: PERRL, EOMI. Anicteric, vision grossly intact. Ears: No ear pain, no ear discharge, Hearing grossly intact. Nose: No nasal discharge. Mouth/Throat: Oral mucosa moist. No obvious lesions in oropharynx. Neck: Neck supple, non-tender, no cervical lymphadenopathy. Cardiovascular: Tachycardic rate and regular rhythm, no murmur, no JVD or carotid bruits. +S1/S2. Respiratory: Bilateral lungs are clear to auscultation, respirations unlabored, no crackles, no wheezing. No accessory muscle use. Gastrointestinal: Vertical cicatrix at umbilicus from . Soft, nontender, non-distended, no palpable masses. No guarding or rebound tenderness. Peristalsis present. Extremities: Symmetrical, no significant deformities. No edema, no cyanosis, no clubbing. 2+ radial pulse bilaterally, 2+ posterior tibial pulse bilaterally. Neuro: No focal deficits observed. Conversant, moving all extremities. No overt cerebellar signs/incoordination. Psychiatric: Cooperative, appropriate affect. Breast: Area of non-erythematous induration that was hot and tender to palpation at the 4-5 o' clock position of the right breast. Left breast normal. Results: Labs 04/05/25 04:45 04/05/25 04:45 Labs: Short CBC 04/04/25 Range/Units 09:20 WBC 14.8 H (3.6-11.0) Thou/mm3 Hgb 11.5 L (12.0-16.0) g/dL Hct 35.8 L (36.0-46.0) % Plt Count 310 D (140-440) Thou/mm3 BMP 04/04/25 09:20 Sodium 137 Potassium 4.0 Chloride 104 Carbon Dioxide 21.5 BUN 11 Creatinine 0.6 Glucose 100 Calcium 9.3 Liver Function 04/04/25 Range/Units 09:20 Total Bilirubin 0.4 (0.3-1.2) mg/dL AST 18 (0-34) U/L ALT 18 (10-49) U/L Alkaline Phosphatase 129 H (46-116) U/L Albumin 4.8 (3.5-5.0) gm/dL Urine 04/04/25 Range/Units 10:10 Urine Color Lt-Yellow (Lt Yel-Yel) Urine Clarity Clear (Clear/Hazy) Urine pH 6.0 (5.0-7.0) Ur Specific Buhl 1.026 (1.001-1.035) Urine Protein Negative (Neg - Trace) Urine Glucose (UA) Negative (Negative) Quality Measures Quality Measures sepsis Current suspected stage: ruled out Possible source: skin/soft tissue Blood cultures ordered: completed in ED Antibiotic ordered: Yes Medications Home Medications and Allergies Home Medications ?Medication ?Instructions ?Recorded ?Confirmed ?Type No Known Home Medications 04/04/2503/16 History Allergies Allergy/AdvReac Type Severity Reaction Status Date / Time No Known Allergies Allergy Verified 04/04/25 08:47 Visit Medications Discontinued Medications Acetaminophen (Acetaminophen 325 Mg Tablet) 650 mg PO X1 ONE Stop: 04/04/25 09:07 Last Admin: 04/04/25 10:41 Dose: Not Given Lactated Ringer's (Lactated Ringers) 1,000 mls @ 999 mls/hr IV .Q1H1M ONE Stop: 04/04/25 11:05 Last Infusion: 04/04/25 12:14 Dose: Infused Acetaminophen (Ofirmev Inj) 1,000 mg in 100 mls @ 250 mls/hr IV NOW ONE Stop: 04/04/25 10:28 Last Infusion: 04/04/25 10:48 Dose: Infused Ceftriaxone Sodium/Dextrose (Rocephin/D5w 1gm Iv Premix) 1 gm in 50 mls @ 100 mls/hr IV X1 ONE Stop: 04/04/25 10:34 Last Infusion: 04/04/25 11:03 Dose: Infused Ketorolac Tromethamine (Ketorolac Inj 30 Mg/Ml Vial) 30 mg IVP X1 ONE Stop: 04/04/25 10:06 Last Admin: 04/04/25 10:22 Dose: 30 mg Assessment & Plan Plan Patient is a Micronesian-speaking 24-year-old female with PMH of gestational diabetes and recent childbirth via on 03/12/25 who presented on 04/04/25 with a chief complaint of chest pain and headache . Patient was admitted to Observation for the work-up and management of lactational peripheral right breast abscess. #Lactational peripheral right breast abscess #s/p childbirth and on 03/12/25 #Leukocytosis #Lactic acidosis, resolved Patient initially presented with chest pain and headache on 04/04/25 and was found to have an area of non-erythematous induration that was hot and tender to palpation at the 4-5 o' clock position of the right breast 04/04 admission labs significant for WBC 14.8 and lactic acid 2.1 (down-trended to 1.0 within 4 hours) 04/04 breast US showed a retroareolar 5:00 mass of dimensions 4.2 x 1.6 x 3.8 cm that is mostly likely an abscess Of note, patient is recently s/p childbirth via on 03/12/25 and is actively her Dx: -04/04 MRSA nasal screen ordered, showed ___ Rx: -General Surgery (Dr. Jama) consulted, recommended continued antibiotic treatment and possible percutaneous aspiration of abscess by IR -Rocephin 1 g IV QD [04/04--] -Doxycycline 100 mg PO BID [04/04--] -Tylenol 650 mg PO Q6HR prn for Pain 1-3 - referral Hospital Management: Disposition: Med Surg (Observation) Diet: Regular GI Prophylaxis: None Bowel Prophylaxis: None DVT Prophylaxis: None CODE STATUS: Full Code I have examined the patient and conferred with my attending, Dr. Lux, and my senior resident, Dr. Jones, regarding them. Rickie Frazier DO PGY-1 Internal Medicine Attending Provider Attestation/Addendum I or my resident physicians have discussed care with the ED physician and I have made the decision to admit. I have discussed and was present for the essential components of the history, physical examination, diagnosis, and treatment plan with the resident. I agree with the patient's care as documented by the resident and amended herein by me. Toni Lux DO. Although this document has been carefully reviewed, there may still be some phonetic and other typographical errors. These errors are purely grammatical due to imperfections in the software program and should not be construed in any way to compromise the substance of the patient's medical care during this visit.
[2025-04-04] MEDS: ACETAMINOPHEN 325 MG TABLET 650 MG PO (16:08)
--- NOTE | 2025-04-04 18:15 | PC.NURSE ---
Spoke to L&D charge nurse and L&D charge nurse with Dr. Natalie Gleason. Per Dr. Gleason pt. should still pump on affected side to prevent further mastitis. But for now pt. needs to pump and dump milk due to unknown safety of antibiotics. Pt. made aware of education with distributed generation project manager at bedside. Pt. provided with breast pump and supplies and lanolin cream, and pt. educated on how to use breast pump and clean parts.
--- NOTE | 2025-04-04 18:30 | PD.SURCONS ---
Meds Home Medications and Allergies Home Medications ?Medication ?Instructions ?Recorded ?Confirmed ?Type No Known Home Medications 04/04/25 04/04/25 History Allergies Allergy/AdvReac Type Severity Reaction Status Date / Time No Known Allergies Allergy Verified 04/04/25 08:47 Exam Vital Signs Temp Pulse Resp BP Pulse Ox O2 Del Method 98.7 F 82 18 105/60 97 Room Air 04/04/25 17:08 04/04/25 15:46 04/04/25 15:46 04/04/25 15:46 04/04/25 15:46 04/04/25 15:46 Assessment & Plan Additional Assessment Additional comments: Impression: Breast abscess in the lactating woman right side Plan Plan: Patient does not require any surgical drainage. She needs antibiotics and aspiration percutaneously by IR. Thank you
[2025-04-04] MEDS: DOXYCYCLINE 100 MG TABLET PO (20:51)
[2025-04-05] VITALS (10 sets, daily range): BP systolic 90–116; BP diastolic 63–106; PULSE 82–122; RESP 16–18; TEMP 36.3–39.1; O2SAT 95–99
[2025-04-05] MEDS: ACETAMINOPHEN 325 MG TABLET 650 MG PO ×2 (00:41→08:17)
[2025-04-05 06:05] LABS: Basophils # (Auto) 0.0 Thou/mm3 (0.0-0.2); Basophils % (Auto) 0 % (0-2.5); Eosinophils # (Auto) 0.0 Thou/mm3 (0.0-0.5); Eosinophils % (Auto) 0 % (0-10); Hematocrit 32.0 % (36.0-46.0); Hemoglobin 10.2 g/dL (12.0-16.0); Immature Granulocytes Auto 0.06 Thou/mm3 (0.00-0.00); Lymphocytes # (Auto) 1.5 Thou/mm3 (1.0-4.8); Lymphocytes % (Auto) 15 % (10-50); Mean Corpuscular HGB Conc 31.9 g/dl (31.0-37.0); Mean Corpuscular Hemoglobin 25.2 pg (25.0-35.0); Mean Corpuscular Volume 79 fL (80-100); Monocytes # (Auto) 0.3 Thou/mm3 (0.0-0.8); Monocytes % (Auto) 3 % (0-12); Neutrophils # (Auto) 8.2 Thou/mm3 (1.8-7.7); Neutrophils % (Auto) 82 % (37-80); Nucleated Red Blood Cell # 0.00 Thou/mm3 (0.00-0.00); Nucleated Red Blood Cell % 0 /100 WBC (0); Platelet Count 222 Thou/mm3 (140-440); RDW Standard Deviation 49.3 fL (36.4-46.3); Red Blood Count 4.05 Miln/mm3 (4.00-5.20); White Blood Count 10.1 Thou/mm3 (3.6-11.0)
[2025-04-05 06:38] LABS: Alanine Aminotransferase 16 U/L (10-49); Albumin, Serum 3.9 gm/dL (3.5-5.0); Albumin/Globulin Ratio 1.4 (1.2-2.2); Alkaline Phosphatase 96 U/L (46-116); Anion Gap 10 (7-16); Aspartate Amino Transferase 22 U/L (0-34); BUN/Creatinine Ratio 14 Ratio (12-20); Bilirubin,Total 0.3 mg/dL (0.3-1.2); Blood Urea Nitrogen 7 mg/dL (9-23); Calcium 8.6 mg/dL (8.3-10.6); Calcium (Corrected) 8.7 mg/dL (8.5-10.1); Carbon Dioxide 20.8 mMol/L (20.0-31.0); Chloride 108 mMol/L (98-107); Creatinine (Component) 0.5 mg/dL (0.6-1.3); Estimated Creatinine Clearance 132.2 mL/min (>60); Globulin 2.7 gm/dL (2.3-3.5); Glucose 88 mg/dL (74-106); Osmolality,Calculated 274 (275-295); Potassium 3.8 mMol/L (3.4-5.1); Sodium 139 mMol/L (136-145); Total Protein 6.6 gm/dL (5.7-8.2); eGFR > 60 See Note
[2025-04-05] MEDS: cefTRIAXone/D5w 1gm IV premix 1 GM/50 ML BAG IV (08:16)
[2025-04-05] MEDS: DOXYCYCLINE 100 MG TABLET PO (08:17)
[2025-04-05] MEDS: ENOXAPARIN SOD INJ 40 MG/0.4 ML SYRINGE SC (10:07)
[2025-04-05] MEDS: VANCOMYCIN/NS 1 GM IVPB 200 ML IV ×2 (10:10→21:39)
--- NOTE | 2025-04-05 11:44 | PD.RESPRO ---
Documentation for date of: 04/05/25 Subjective Subjective Interval history: Overnight, patient spiked a fever of 102.4 despite being on antibiotics. Then, around 0800, a rapid response was called due to the concern of patient's nurse for new-onset chest pain. Patient was examined at bedside at that time; she appeared slightly uncomfortable but appeared stable with vitals WNL. Chest pain was localized to the same area of tender induration patient had initially complained about upon admission (area of right breast abscess). Vitals/labs today significant for HR 118, WBC 14.8->10.1. Physical exam remains unchanged from yesterday. Due to ongoing febrile episodes, doxycycline IV was discontinued and replaced with vancomycin IV for additional coverage against MRSA along with the Rocephin IV patient was already being treated with. There is also the possibility that the antibiotics are not able to reach within the walled-in area of the abscess interior. Ultimately, patient will likely require IR-guided abscess drainage for complete resolution of her ongoing infection which will hopefully occur on Monday. Exam Vital Signs Temp Pulse Resp BP Pulse Ox O2 Del Method 99.5 F 118 H 16 107/65 98 Room Air 04/05/25 08:00 04/05/25 08:00 04/05/25 08:00 04/05/25 08:00 04/05/25 08:00 04/05/25 08:00 Narrative Exam General: A/O x3, no acute distress. Head: Normocephalic, atraumatic. Eyes: PERRL, EOMI. Anicteric, vision grossly intact. Ears: No ear pain, no ear discharge, Hearing grossly intact. Nose: No nasal discharge. Mouth/Throat: Oral mucosa moist. No obvious lesions in oropharynx. Neck: Neck supple, non-tender, no cervical lymphadenopathy. Cardiovascular: Tachycardic rate and regular rhythm, no murmur, no JVD or carotid bruits. +S1/S2. Respiratory: Bilateral lungs are clear to auscultation, respirations unlabored, no crackles, no wheezing. No accessory muscle use. Gastrointestinal: Vertical cicatrix at umbilicus from . Soft, nontender, non-distended, no palpable masses. No guarding or rebound tenderness. Peristalsis present. Extremities: Symmetrical, no significant deformities. No edema, no cyanosis, no clubbing. 2+ radial pulse bilaterally, 2+ posterior tibial pulse bilaterally. Neuro: No focal deficits observed. Conversant, moving all extremities. No overt cerebellar signs/incoordination. Psychiatric: Cooperative, appropriate affect. Breast: Area of non-erythematous induration that was hot and tender to palpation at the 4-5 o' clock position of the right breast. Left breast normal. Objective Labs 04/05/25 04:45 04/05/25 04:45 Labs: Laboratory Results - last 24 hr 04/04/25 04/05/25 13:10 04:45 WBC 10.1 RBC 4.05 Hgb 10.2 L Hct 32.0 L MCV 79 L MCH 25.2 MCHC 31.9 RDW Std Deviation 49.3 H Plt Count 222 D Neut % (Auto) 82 H Lymph % (Auto) 15 [place] % (Auto) 3 Eos % (Auto) 0 Baso % (Auto) 0 Neut # (Auto) 8.2 H Lymph # (Auto) 1.5 [place] # (Auto) 0.3 Eos # (Auto) 0.0 Baso # (Auto) 0.0 Immature Gran # (Auto) 0.06 H Absolute Nucleated RBC 0.00 Immature Gran % 1 H Nucleated RBC % 0 Sodium 139 Potassium 3.8 Chloride 108 H Carbon Dioxide 20.8 Anion Gap 10 BUN 7 L Creatinine 0.5 L Estim Creat Clear Calc 132.2 eGFR > 60 BUN/Creatinine Ratio 14 Glucose 88 Calculated Osmolality 274 L Lactic Acid 1.0 Calcium 8.6 Corrected Calcium 8.7 Total Bilirubin 0.3 AST 22 ALT 16 Alkaline Phosphatase 96 D Total Protein 6.6 Albumin 3.9 D Globulin 2.7 Albumin/Globulin Ratio 1.4 Quality Measures Quality Measures sepsis Current suspected stage: ruled out Possible source: skin/soft tissue Blood cultures ordered: completed in ED Antibiotic ordered: Yes Assessment & Plan Assessment Current Active Medications: Generic Name Dose Route Start Last Admin Trade Name Freq PRN Reason Stop Dose Admin Acetaminophen 650 mg 04/04/25 15:53 04/05/25 08:17 Acetaminophen 325 Mg Tablet PO 05/04/25 15:52 650 mg Q6H PRN Administration Fever >100.4 or Pain 1-10 Protocol Enoxaparin Sodium 40 mg 04/05/25 09:00 04/05/25 10:07 Enoxaparin Sod Inj 40 Mg/0.4 Ml Syringe SC 04/19/25 08:59 40 mg QDAY RAINA Administration Vancomycin/Sodium Chloride 200 mls @ 120 mls/hr 04/05/25 10:00 04/05/25 10:10 Vancomycin/Ns 1 Gm Ivpb IV 04/12/25 09:59 120 mls/hr BID@1000,2200 RAINA Administration Protocol Morphine Sulfate 1 mg 04/05/25 09:23 Morphine Sulf Inj 4 Mg/Ml Vial IVP 04/10/25 09:21 Q4HR PRN for severe 7-10 pain Protocol Ondansetron HCl 4 mg 04/04/25 15:53 Ondansetron Inj 2 Mg/Ml Inj 2 Ml IVP 05/04/25 15:52 Q6H PRN NAUSEA OR VOMITING Protocol Pharmacy Consult 1 each 04/06/25 09:00 Vancomycin Pharmacy To Dose 1 Each Each IV 05/06/25 08:59 QDAY PRN PROTOCOL Plan Patient is a Luxembourgish-speaking 24-year-old female with PMH of gestational diabetes and recent childbirth via on 03/12/25 who presented on 04/04/25 with a chief complaint of chest pain and headache . Patient was admitted to Observation for the work-up and management of lactational peripheral right breast abscess. #Lactational peripheral right breast abscess #s/p childbirth and on 03/12/25 #Leukocytosis #Lactic acidosis, resolved Patient initially presented with chest pain and headache on 04/04/25 and was found to have an area of non-erythematous induration that was hot and tender to palpation at the 4-5 o' clock position of the right breast 04/04 admission labs significant for WBC 14.8 and lactic acid 2.1 (down-trended to 1.0 within 4 hours) 04/04 breast US showed a retroareolar 5:00 mass of dimensions 4.2 x 1.6 x 3.8 cm that is mostly likely an abscess Of note, patient is recently s/p childbirth via on 03/12/25 and is actively her Dx: -04/04 MRSA nasal screen ordered, showed ___ Rx: -General Surgery (Dr. Jama) consulted, recommended continued antibiotic treatment and possible percutaneous aspiration of abscess by IR -Vancomycin 1 g IV BID [04/05--] -Rocephin 1 g IV QD [04/04--] -Doxycycline 100 mg PO BID discontinued [04/04-04/04] -Tylenol 650 mg PO Q6HR prn for Pain 1-3 - referral Hospital Management: Disposition: Med Surg (Observation) Diet: Regular GI Prophylaxis: None Bowel Prophylaxis: None DVT Prophylaxis: Lovenox CODE STATUS: Full Code I have examined the patient and conferred with my attending, Dr. Lux, and my senior resident, Dr. Jones, regarding them. Rickie Frazier DO PGY-1 Internal Medicine Attending Provider Attestation/Addendum I have discussed and was present for the essential components of the history, physical examination, diagnosis, and treatment plan with the resident. I agree with the patient's care as documented by the resident and amended herein by me. Toni Lux DO. Although this document has been carefully reviewed, there may still be some phonetic and other typographical errors. These errors are purely grammatical due to imperfections in the software program and should not be construed in any way to compromise the substance of the patient's medical care during this visit. Patient seen and evaluated this AM. No acute events overnight however the rapid response was called this morning for pain, it was stemming from her breast, cardiac chest pain was excluded. Tmax overnight 102.4. Significant labs include a stable hemoglobin of 10.2. At this time I will discontinue doxycycline and add vancomycin which is safe during and continue ceftriaxone. Patient may need more activity against MRSA which I believe vancomycin will provide. We have also placed a consult for interventional radiology for abscess drainage of the breast on Monday if can be accomplished per general surgery recommendations. Will continue to monitor closely, patient otherwise doing well.
[2025-04-06 04:00] VITALS: BP 114/74; PULSE 73; RESP 18; TEMP 37; O2SAT 98
[2025-04-06 05:51] LABS: Basophils # (Auto) 0.0 Thou/mm3 (0.0-0.2); Basophils % (Auto) 0 % (0-2.5); Eosinophils # (Auto) 0.2 Thou/mm3 (0.0-0.5); Eosinophils % (Auto) 4 % (0-10); Hematocrit 32.3 % (36.0-46.0); Hemoglobin 10.3 g/dL (12.0-16.0); Immature Granulocytes Auto 0.01 Thou/mm3 (0.00-0.00); Lymphocytes # (Auto) 2.5 Thou/mm3 (1.0-4.8); Lymphocytes % (Auto) 43 % (10-50); Mean Corpuscular HGB Conc 31.9 g/dl (31.0-37.0); Mean Corpuscular Hemoglobin 25.4 pg (25.0-35.0); Mean Corpuscular Volume 80 fL (80-100); Monocytes # (Auto) 0.4 Thou/mm3 (0.0-0.8); Monocytes % (Auto) 6 % (0-12); Neutrophils # (Auto) 2.7 Thou/mm3 (1.8-7.7); Neutrophils % (Auto) 46 % (37-80); Nucleated Red Blood Cell # 0.00 Thou/mm3 (0.00-0.00); Nucleated Red Blood Cell % 0 /100 WBC (0); Platelet Count 219 Thou/mm3 (140-440); RDW Standard Deviation 48.9 fL (36.4-46.3); Red Blood Count 4.05 Miln/mm3 (4.00-5.20); White Blood Count 5.8 Thou/mm3 (3.6-11.0)
[2025-04-06 06:14] LABS: Alanine Aminotransferase 18 U/L (10-49); Albumin, Serum 4.0 gm/dL (3.5-5.0); Albumin/Globulin Ratio 1.4 (1.2-2.2); Alkaline Phosphatase 99 U/L (46-116); Anion Gap 10 (7-16); Aspartate Amino Transferase 22 U/L (0-34); BUN/Creatinine Ratio 10 Ratio (12-20); Bilirubin,Total 0.2 mg/dL (0.3-1.2); Blood Urea Nitrogen 6 mg/dL (9-23); Calcium 8.6 mg/dL (8.3-10.6); Calcium (Corrected) 8.6 mg/dL (8.5-10.1); Carbon Dioxide 21.3 mMol/L (20.0-31.0); Chloride 109 mMol/L (98-107); Creatinine (Component) 0.6 mg/dL (0.6-1.3); Estimated Creatinine Clearance 134.2 mL/min (>60); Globulin 2.8 gm/dL (2.3-3.5); Glucose 87 mg/dL (74-106); Osmolality,Calculated 276 (275-295); Potassium 4.2 mMol/L (3.4-5.1); Sodium 140 mMol/L (136-145); Total Protein 6.8 gm/dL (5.7-8.2); eGFR > 60 See Note
[2025-04-06 08:00] VITALS: BP 115/68; PULSE 67; RESP 18; TEMP 36.7; O2SAT 96
[2025-04-06] MEDS: ENOXAPARIN SOD INJ 40 MG/0.4 ML SYRINGE SC (08:57)
[2025-04-06] MEDS: VANCOMYCIN/NS 1 GM IVPB 200 ML IV ×2 (10:29→22:18)
--- NOTE | 2025-04-06 11:57 | PD.RESPRO ---
Documentation for date of: 04/06/25 Subjective Subjective Interval history: Seen patient this morning, No chest pain. Right breast pain improving. No new redness, swelling, or tenderness. Using breast pump without difficulty. No fever, highest temp recorded was 100.3?F, but afebrile this morning at 98.3?F. No nausea, vomiting, shortness of breath, or systemic symptoms. States she feels overall better today. Awaiting IR aspiration/drainage scheduled for Monday. Exam Vital Signs Temp Pulse Resp BP Pulse Ox O2 Del Method FiO2 98.1 F 67 18 115/68 96 Room Air 5 04/06/25 08:00 04/06/25 08:00 04/06/25 08:00 04/06/25 08:00 04/06/25 08:00 04/06/25 08:00 04/05/25 19:59 Narrative Exam General: A/O x3, no acute distress. Head: Normocephalic, atraumatic. Eyes: PERRL, EOMI. Anicteric, vision grossly intact. Ears: No ear pain, no ear discharge, Hearing grossly intact. Nose: No nasal discharge. Mouth/Throat: Oral mucosa moist. No obvious lesions in oropharynx. Neck: Neck supple, non-tender, no cervical lymphadenopathy. Cardiovascular: Regular rate and regular rhythm, no murmur, no JVD or carotid bruits. +S1/S2. Respiratory: Bilateral lungs are clear to auscultation, respirations unlabored, no crackles, no wheezing. No accessory muscle use. Gastrointestinal: Vertical cicatrix at umbilicus from . Soft, nontender, non-distended, no palpable masses. No guarding or rebound tenderness. Peristalsis present. Extremities: Symmetrical, no significant deformities. No edema, no cyanosis, no clubbing. 2+ radial pulse bilaterally, 2+ posterior tibial pulse bilaterally. Neuro: No focal deficits observed. Conversant, moving all extremities. No overt cerebellar signs/incoordination. Psychiatric: Cooperative, appropriate affect. Breast: Area of non-erythematous induration that was hot and tender to palpation at the 4-5 o' clock position of the right breast. Left breast normal. Objective Labs 04/06/25 05:05 04/06/25 05:05 Labs: Laboratory Results - last 24 hr 04/06/25 05:05 WBC 5.8 D RBC 4.05 Hgb 10.3 L Hct 32.3 L MCV 80 MCH 25.4 MCHC 31.9 RDW Std Deviation 48.9 H Plt Count 219 Neut % (Auto) 46 Lymph % (Auto) 43 [place] % (Auto) 6 Eos % (Auto) 4 Baso % (Auto) 0 Neut # (Auto) 2.7 Lymph # (Auto) 2.5 [place] # (Auto) 0.4 Eos # (Auto) 0.2 Baso # (Auto) 0.0 Immature Gran # (Auto) 0.01 H Absolute Nucleated RBC 0.00 Immature Gran % 0 Nucleated RBC % 0 Sodium 140 Potassium 4.2 Chloride 109 H Carbon Dioxide 21.3 Anion Gap 10 BUN 6 L Creatinine 0.6 Estim Creat Clear Calc 134.2 eGFR > 60 BUN/Creatinine Ratio 10 L Glucose 87 Calculated Osmolality 276 Calcium 8.6 Corrected Calcium 8.6 Total Bilirubin 0.2 L AST 22 ALT 18 Alkaline Phosphatase 99 Total Protein 6.8 Albumin 4.0 Globulin 2.8 Albumin/Globulin Ratio 1.4 Quality Measures Quality Measures sepsis Current suspected stage: ruled out Possible source: skin/soft tissue Blood cultures ordered: completed in ED Antibiotic ordered: Yes Assessment & Plan Assessment Current Active Medications: Generic Name Dose Route Start Last Admin Trade Name Freq PRN Reason Stop Dose Admin Acetaminophen 650 mg 04/04/25 15:53 04/05/25 08:17 Acetaminophen 325 Mg Tablet PO 05/04/25 15:52 650 mg Q6H PRN Administration Fever >100.4 or Pain 1-10 Protocol Enoxaparin Sodium 40 mg 04/05/25 09:00 04/06/25 08:57 Enoxaparin Sod Inj 40 Mg/0.4 Ml Syringe SC 04/19/25 08:59 40 mg QDAY RAINA Administration Vancomycin/Sodium Chloride 200 mls @ 120 mls/hr 04/05/25 10:00 04/06/25 10:29 Vancomycin/Ns 1 Gm Ivpb IV 04/12/25 09:59 120 mls/hr BID@1000,2200 RIANA Administration Protocol Morphine Sulfate 1 mg 04/05/25 09:23 Morphine Sulf Inj 4 Mg/Ml Vial IVP 04/10/25 09:21 Q4HR PRN for severe 7-10 pain Protocol Ondansetron HCl 4 mg 04/04/25 15:53 Ondansetron Inj 2 Mg/Ml Inj 2 Ml IVP 05/04/25 15:52 Q6H PRN NAUSEA OR VOMITING Protocol Pharmacy Consult 1 each 04/06/25 09:00 Vancomycin Pharmacy To Dose 1 Each Each IV 05/06/25 08:59 QDAY PRN PROTOCOL Plan 24-year-old [place] Islander-speaking female ( 03/12/25) admitted for lactational right breast abscess, now clinically improving on vancomycin, afebrile, awaiting IR drainage Monday. #Lactational peripheral right breast abscess #s/p childbirth and on 03/12/25 #Leukocytosis #Lactic acidosis, resolved Patient initially presented with chest pain and headache on 04/04/25 and was found to have an area of non-erythematous induration that was hot and tender to palpation at the 4-5 o' clock position of the right breast 04/04 admission labs significant for WBC 14.8 and lactic acid 2.1 (down-trended to 1.0 within 4 hours) 04/04 breast US showed a retroareolar 5:00 mass of dimensions 4.2 x 1.6 x 3.8 cm that is mostly likely an abscess Of note, patient is recently s/p childbirth via on 03/12/25 and is actively her infant Dx: -04/04 MRSA nasal screen ordered, showed pending. Rx: -IR drainage/aspiration Monday per General Surgery & IR. -Encourage continued pumping; avoid from affected breast if too painful. -Vancomycin 1 g IV BID [04/05--] -Rocephin 1 g IV QD Dc'd [04/04-04/05] -Doxycycline 100 mg PO BID discontinued [04/04-04/04] -Tylenol 650 mg PO Q6HR prn for Pain 1-3 - referral Hospital Management: Disposition: Med Surg Diet: Regular GI Prophylaxis: None Bowel Prophylaxis: None DVT Prophylaxis: Lovenox CODE STATUS: Full Code ----- Plan discussed with attending physician Dr. Maci Garcia MD PGY-1 Internal Medicine Attending Provider Attestation/Addendum I have discussed and was present for the essential components of the history, physical examination, diagnosis, and treatment plan with the resident. I agree with the patient's care as documented by the resident and amended herein by me. Toni Lux DO. Although this document has been carefully reviewed, there may still be some phonetic and other typographical errors. These errors are purely grammatical due to imperfections in the software program and should not be construed in any way to compromise the substance of the patient's medical care during this visit. No acute events overnight, patient's pain improved today however still very tender to palpation on the right breast. Will attempt IR drainage tomorrow per general surgery recommendations, for now we will continue ceftriaxone and vancomycin. Patient has remained afebrile, possible DC in 1 to 2 days on oral antibiotics.
[2025-04-06 12:00] VITALS: BP 104/59; PULSE 72; RESP 18; TEMP 36.8; O2SAT 98
[2025-04-06 16:00] VITALS: BP 107/61; PULSE 76; RESP 17; TEMP 36.6; O2SAT 96
[2025-04-06 20:00] VITALS: BP 109/66; PULSE 66; RESP 16; TEMP 36.3; O2SAT 100
[2025-04-06 22:04] LABS: Vancomycin,Trough 8.7 mcg/mL (5.0-10.0)
[2025-04-07] VITALS: BP 117/88; PULSE 60; RESP 16; TEMP 36.4; O2SAT 100
[2025-04-07 04:00] VITALS: BP 107/68; PULSE 65; RESP 17; TEMP 36.1; O2SAT 98
[2025-04-07 05:51] LABS: Basophils # (Auto) 0.0 Thou/mm3 (0.0-0.2); Basophils % (Auto) 1 % (0-2.5); Eosinophils # (Auto) 0.3 Thou/mm3 (0.0-0.5); Eosinophils % (Auto) 7 % (0-10); Hematocrit 31.7 % (36.0-46.0); Hemoglobin 10.0 g/dL (12.0-16.0); Immature Granulocytes Auto 0.01 Thou/mm3 (0.00-0.00); Lymphocytes # (Auto) 2.5 Thou/mm3 (1.0-4.8); Lymphocytes % (Auto) 58 % (10-50); Mean Corpuscular HGB Conc 31.5 g/dl (31.0-37.0); Mean Corpuscular Hemoglobin 25.2 pg (25.0-35.0); Mean Corpuscular Volume 80 fL (80-100); Monocytes # (Auto) 0.4 Thou/mm3 (0.0-0.8); Monocytes % (Auto) 9 % (0-12); Neutrophils # (Auto) 1.1 Thou/mm3 (1.8-7.7); Neutrophils % (Auto) 25 % (37-80); Nucleated Red Blood Cell # 0.00 Thou/mm3 (0.00-0.00); Nucleated Red Blood Cell % 0 /100 WBC (0); Platelet Count 227 Thou/mm3 (140-440); RDW Standard Deviation 49.1 fL (36.4-46.3); Red Blood Count 3.97 Miln/mm3 (4.00-5.20); White Blood Count 4.3 Thou/mm3 (3.6-11.0)
[2025-04-07 06:01] LABS: INR 1.0 (0.9-1.3); Partial Thromboplastin Time 32.8 Seconds (22.0-36.0); Prothrombin Time 10.5 Seconds (9.0-12.2)
[2025-04-07 06:24] LABS: Alanine Aminotransferase 24 U/L (10-49); Albumin, Serum 4.1 gm/dL (3.5-5.0); Albumin/Globulin Ratio 1.5 (1.2-2.2); Alkaline Phosphatase 98 U/L (46-116); Anion Gap 9 (7-16); Aspartate Amino Transferase 25 U/L (0-34); BUN/Creatinine Ratio 17 Ratio (12-20); Bilirubin,Total < 0.2 mg/dL (0.3-1.2); Blood Urea Nitrogen 10 mg/dL (9-23); Calcium 8.9 mg/dL (8.3-10.6); Calcium (Corrected) 8.9 mg/dL (8.5-10.1); Carbon Dioxide 22.7 mMol/L (20.0-31.0); Chloride 109 mMol/L (98-107); Creatinine (Component) 0.6 mg/dL (0.6-1.3); Estimated Creatinine Clearance 134.2 mL/min (>60); Globulin 2.7 gm/dL (2.3-3.5); Glucose 88 mg/dL (74-106); Osmolality,Calculated 279 (275-295); Potassium 4.4 mMol/L (3.4-5.1); Sodium 141 mMol/L (136-145); Total Protein 6.8 gm/dL (5.7-8.2); eGFR > 60 See Note
[2025-04-07 08:00] VITALS: BP 106/62; PULSE 67; RESP 16; TEMP 36.1; O2SAT 94
[2025-04-07] MEDS: cefTRIAXone/D5w 1gm IV premix 1 GM/50 ML BAG IV (09:18)
[2025-04-07] MEDS: VANCOMYCIN/D5W 1,250 MG IVPB 250 ML 150 MG IV (09:21)
--- NOTE | 2025-04-07 09:36 | PC.SS ---
Addendum entered by Courtney Retana 04/07/25 11:05: Update: No IR drainage, plan to continue IV ABX Original Note: Rounding: Pending IR guided drainage today
--- NOTE | 2025-04-07 11:06 | PC.SS ---
Antonio Ahmadi is a 24-year-old female admitted to Med Surg for Breast Abscess. SS conducted bedside contact with the patient to complete initial assessment and to discuss discharge planning. Role and reason explained. Patient confirmed demographic information. Patient identifies Rafal Amaral [phone] as her surrogate decision maker. Pt states she is able to complete all ADL?s independently. No need for any source of DME. Pt does not possess a PCP. Pharmacy of choice is [facility]. Discharge options discussed and the pt wishes to return home.? Family will provide transportation upon DC. No further intervention required at this time, social service worker would be available to address any further concerns. DC Plan: Home Contact: Rafal Address: Confirmed on face sheet PCP: Marley
[2025-04-07 12:00] VITALS: BP 95/50; PULSE 61; RESP 16; TEMP 36.4; O2SAT 99
--- NOTE | 2025-04-07 13:54 | ESDS_ITS ---
Planned Discharge Date 04/07/25 DS: Providers Provider Date of admission: 04/06/25 16:06 Primary care physician: Physician No Primary/Family Admitting Provider: Cheo Lux DO Attending Provider on Admission: Cheo Lux DO Consults: 04/04/25 15:56 Consult to General Surgery Routine Comment: Breast abscess Consulting Provider: Andei Barrientos [facility] Referral - Knowledge Deficit Routine Comment: Positive screening for knowledge deficit needs. 04/04/25 16:15 Referral NOW Comment: Attending Provider on DC: Cheo Lux DO Discharging Provider: Ashlyn Garcia MD DS: Diagnosis Problem List Completed Was Problem List Reviewed/Reconciled?: Yes Hospital Course Hospital Course Hospital course: The patient is a 24-year-old female who presented with a lactational right breast abscess. She was admitted for management with IV antibiotics, including Vancomycin and Ceftriaxone. The abscess was initially evaluated for potential drainage, but after a review by IR, it was determined that there was no adequate fluid pocket for drainage and the risk of milk duct fistula was too high. As a result, the patient was managed conservatively with IV antibiotics. She remained afebrile, with stable vitals, and showed clinical improvement in breast pain and symptoms. The patient tolerated treatment well, and no compli cations were noted during her stay. The patient is clinically stable with improving breast symptoms, no fever, and no new concerns. She is being discharged with continued oral antibiotics and instructions for outpatient care. Diagnosis during admission: #Lactational peripheral right breast abscess #s/p childbirth and on 03/12/25 #Leukocytosis #Lactic acidosis, resolved Discharge instructions: -Continue Keflex (Cephalexin) 500 mg four times a day for 11 more days. (Very important to complete full course). -Take Tylenol as needed for pain every 6 hours. -Continue pumping breast milk regularly to maintain milk supply and avoid from the affected breast until cleared by your provider. -Use warm compresses on the affected breast as tolerated. -Monitor for signs of worsening infection such as increased redness, swelling, or new drainage from the breast. -Follow up with your DIESEL TECHNOLOGY INSTRUCTOR in 1 week or sooner if any issues arise. -Follow-up with your PCP within 1 to 2 weeks. -Resume normal activities as tolerated, but avoid strenuous activity for the next 1-2 weeks and continue your care with rest as needed. -Return to ED if you develop a fever over 100.4 F, increased redness or swelling of the breast, new drainage or pus from the breast, severe pain unrelieved by Tylenol, or difficulty breathing or chest pain. ----- Plan discussed with attending physician Dr. Maci Garcia MD PGY-1 Internal Medicine Time Spent with Patient Time attestation: Total time spent providing and/or coordinating discharge services: Time spent: Greater than 30 minutes Exam Vital Signs Temp Pulse Resp BP Pulse Ox O2 Del Method FiO2 97.5 F 61 16 95/50 L 99 Room Air 5 04/07/25 12:00 04/07/25 12:00 04/07/25 12:00 04/07/25 12:00 04/07/25 12:00 04/07/25 12:00 04/05/25 19:59 Narrative Exam General: Alert and oriented x3, in no acute distress. Head: Normocephalic, atraumatic. Eyes: PERRL, EOMI, anicteric, vision grossly intact. Ears: No ear pain, no ear discharge, hearing grossly intact. Nose: No nasal discharge. Mouth/Throat: Oral mucosa moist, no obvious lesions in oropharynx. Neck: Supple, non-tender, no cervical lymphadenopathy. Cardiovascular: Regular rate and rhythm, no murmur, no JVD or carotid bruits. S1, S2 normal. Respiratory: Clear to auscultation bilaterally, no crackles, wheezes, or accessory muscle use. Gastrointestinal: Abdomen soft, non-tender, non-distended, no palpable masses. Peristalsis present, no guarding or rebound tenderness. Extremities: Symmetrical, no edema or cyanosis. 2+ radial and posterior tibial pulses bilaterally. Neuro: Alert, moving all extremities, no focal deficits, no signs of cerebellar incoordination. Psychiatric: Cooperative, appropriate mood and affect. Breast: Right breast: induration at the 4-5 o'clock position, tender to palpation, no erythema or drainage. Left breast: normal. Discharge Plan Plan Patient Disposition: HOME (Self Care) Care Plan Goals: Discharge instructions: -Continue Keflex (Cephalexin) 500 mg four times a day for 11 more days. (Very important to complete full course). -Take Tylenol as needed for pain every 6 hours. -Continue pumping breast milk regularly to maintain milk supply and avoid from the affected breast until cleared by your provider. -Use warm compresses on the affected breast as tolerated. -Monitor for signs of worsening infection such as increased redness, swelling, or new drainage from the breast. -Follow up with your D[employer] TECH[employer]OLOGY IN[employer]CTOR in 1 week or sooner if any issues arise. -Follow-up with your PCP within 1 to 2 weeks. -Resume normal activities as tolerated, but avoid strenuous activity for the next 1-2 weeks and continue your care with rest as needed. -Return to ED if you develop a fever over 100.4 F, increased redness or swelling of the breast, new drainage or pus from the breast, severe pain unrelieved by Tylenol, or difficulty breathing or chest pain. Instrucciones de jamia: -Contin?e con Keflex (Cefalexina) 500 mg cuatro veces al d?a floyd 11 d?as m?s. (Es muy importante completar el curso completo). -[place] Tylenol seg?n sea necesario para el dolor cada 6 horas. -Contin?e extrayendo leche materna regularmente para mantener el suministro de leche y evite amamantar del seno afectado hasta que oconnell proveedor lo autorice. -Use compresas tibias en el seno afectado seg?n tolerancia. -Monitoree los signos de infecci?n en empeoramiento, curt enrojecimiento, hinchaz?n o drenaje nuevo del seno. -Amber seguimiento con oconnell obstetra o ginec?logo (DIES[employer] TECH[employer]OLOGY INSTRUCTOR) en 1 semana o antes si surge alg?n problema. -Amber seguimiento con oconnell m?dico de cabecera (PCP) dentro de 1 a 2 semanas. -Reanude las actividades normales seg?n tolerancia, nancy evite actividades extenuantes floyd las pr?ximas 1-2 semanas y contin?e con oconnell cuidado postparto con descanso seg?n sea necesario. -Regrese a la [facility] [employer] si desarrolla fiebre superior a 100.4?F, aumento del enrojecimiento o hinchaz?n del seno, nuevo drenaje o pus del seno, dolor shaunna no aliviado con Tylenol, o dificultad para respirar o dolor en el pecho. Prescriptions/Referrals Prescriptions/Med Rec: New cephalexin 500 mg capsule 500 mg PO QID Qty: 44 0RF Referrals: No Primary/Family,Physician [Primary Care Provider] Patient/Caregiver Discharge Instructions Education Materials: , When to Use Antibiotics, ED Abscess Antibiotic ..., ED Mastitis Print Language: [place]arag[place] Stand Alone Forms: Maria M Award Info., Patient Portal Info Letter Discharge Order Discharge Orders: Discharge (Routine); Ordered 04/07/25 Ordered By: Ashlyn Garcia Quality Discharge Quality Measures VTE prophylaxis MD Attestestation MD Attestation I have discussed and was present for the essential components of the discharge history, physical examination, diagnosis, and discharge treatment plan with the resident. I agree with the patient's discharge care as documented by the resident and amended herein by me. Toni Lux DO. The patient understood all discharge instructions, all questions were answered satisfactorily. The patient was instructed to return to the Emergency Department is symptoms worsened or persisted. Patient significantly improved from time of of admission, pain and swelling have significantly reduced. Patient will be discharged on a course of Keflex, she should follow-up with her primary care provider within 1 week of discharge to evaluate continued improvement. The patient was stable, afebrile, tolerating p.o. intake and ambulatory at time of discharge home. Although this document has been carefully reviewed, there may still be some phonetic and other typographical errors. These errors are purely grammatical due to imperfections in the software program and should not be construed in any way to compromise the substance of the patient's medical care during this visit.
[2025-04-07 15:15] VITALS: BP 98/56; PULSE 72; RESP 16; TEMP 36.2; O2SAT 96
== END 2025-04-07 16:10 | disposition home or self-care (01) | DRG 561 ==
LOC: SERX 15:04 → S3SX 23:40 → SERHOLD 04-07 05:46 → S3SX 04-07 05:46
PROVIDERS: Nurse Practitioner Family; Student in an Organized Health Care Education/Training Program; Admitting Provider Student in an Organized Health Care Education/Training Program; Emergency Provider Family Medicine; Visit Provider Student in an Organized Health Care Education/Training Program
DX: O91.13 Abscess of breast associated with lactation (principal); O99.285 Endocrine, nutritional and metabolic diseases complicating the puerperium; E87.20 Acidosis, unspecified; Z86.32 Personal history of gestational diabetes; Z98.891 History of uterine scar from previous surgery
CPT/HCPCS: 36415; 71046; 76642; 80053; 80202; 81001; 83605; 84145; 85025; 85610; 85730; 87040; 87070; 87081; 87086; 87205; 87502; 87635; 96361; 96365; 96375; 99284; G0378; J0131; J0696; J1650; J1885; J3373; J7120; A9270

== ENCOUNTER 2025-04-23 11:04 | Outpatient (AMB) | payer MEDICAID, SELFPAY ==
[2025-04-23 11:19] VITALS: BP 106/65; PULSE 87; RESP 18; TEMP 36.8; O2SAT 98
--- NOTE | 2025-04-23 11:19 | AMB.OBPP ---
Vital Signs 04/23/25 11:19 Weight 59.08 kg Weight Measurement Method Standing Scale BP 106/65 Blood Pressure Source Automatic Cuff Blood Pressure Location Left Upper Arm Position Sitting Respiration 18 Pulse 87 Pulse Source Monitor Temp 98.2 F Temp Source Oral Pulse Oximetry (%) 98 Oxygen Delivery Method Room Air Allergies/Home Meds Allergies & Medications Allergies No Known Allergies Allergy (Verified 04/23/25 11:20) Medication Reconciliation cephalexin 500 mg capsule 500 mg PO QID #44 caps 04/07/25 [Rx Confirmed 04/23/25] drospirenone 3 mg-ethinyl estradiol 0.02 mg tablet (MAN (28)) 1 tab PO QDAY 84 days #84 tabs 04/23/25 [Rx] Intake Visit Data Collection New Patient or Established: Established Patient (seen at [facility] within 3 years) Reason for Visit:: PP Seen by Clinical Staff ONLY (RN/MA): No Fermentation Manager Required: Yes Fermentation Manager's name/title: PATRICIA PEREIRA MA Do You Feel Safe at Home: Yes Authorities Contacted: N/A PCP or OBGYN visit in last 3 months: Yes Date of Last PCP or OBGYN visit: 04/07/25 Hx Now: Yes Are you currently on any form of Control: No Pain Present Currently: No Pain Scale Used: Smith-Bowen/Numerical Pain scale:: 0 Smoking Status Smoking Status: Never smoker Immunizations Flu Vaccine in the Last 12 Months: No Flu Vaccine Exclusion Criteria: No Exclusion Criteria 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: Past Medical History Past Medical History: No Hx Neurological Disorders, No Hx Breast Cancer, No Hx Cardiac Disorders, No Hx Cancer, No Hx Blood Disorders, No Hx Gastrointestinal Disorders, No Hx Renal Disease, No Hx Diabetes Mellitus Type 1 and No Hx Diabetes Mellitus Type 2 Questionnaires Covid-19 Vaccine Questionnaire Has patient been vacinated for Covid-19 Have you been vacinated for Covid-19: Yes Social History Living Situation History Lives With: Family Housing: House Tobacco History Smoking Status: Never smoker Second Hand Smoke Exposure: Yes Alcohol History Alcohol Intake: Never Domestic Abuse History Do You Feel Safe at Home: Yes EPDS - PP Depression Screening [place] Pospartum Depression Screen I have been able to laugh and see the funny side of things: (0) As much as I always could I have looked forward with enjoyment to things: (0) As much as I ever did I have blamed myself unnecessarily when things went wrong: (0) No, never I have been anxious or worried for no good reason: (0) No, not at all I have felt scared or panicky for no very good reason: (0) No, not at all Things have been getting on top of me: (0) No, I have been coping as well as ever I have been so unhappy that I have had difficulty sleeping: (0) No, not at all I have felt sad or miserable: (0) No, not at all I have been so unhappy that I have been crying: (0) No, never The thought of harming myself has occurred to me: (0) Never Total Score: EPDS Score: Referral is indicated for score of 9 or more, suicidal, or if provider believes patient is depressed regardless of score.: 0 EPDS completed yes HPI Interval History: Amandeep Sanchez presents for routine follow-up after section delivery on March 12 and recent hospitalization for breast abscess. The patient underwent section approximately 6 weeks ago and reports that her incision has healed well. She was subsequently hospitalized for a breast abscess, which has now cleared. The patient is currently and reports no blood in her breast milk. She had gestational diabetes during her . The patient is seeking contraception and requested control pills. She has a history of section on March 12. The patient notes that she is currently her infant. She is seeking contraception options and has requested control pills. The patient expresses interest in family planning given her recent delivery and current status. She has an obstetric history of G1 T1 L1. Her was complicated by gestational diabetes. Her course was complicated by breast abscess, which has now resolved. The patient is currently and lives with her infant. 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 Exam Narrative Physical exam: - Abdominal: Previous scar well-healed. General General Appearance: alert, in no apparent distress and healthy appearing Head Head exam: atraumatic Neck Neck exam: Present normal inspection and trachea midline Chest Chest inspection: Present normal inspection and symmetric chest wall rise External exam: Present normal external exam; Absent tenderness Neuro Neurological exam: Present oriented X3 Psych Psychiatric exam: Present normal affect and normal mood Office Procedures OBC Clinic LOC & Office Proc's Nursing/Assessment Patient Status: Established Patient OB Clinic Nursing Assessment: Medication Reconciliation, Update PMH in EMR and Vital Signs OB Clinic Coordination of Care: Consent,records obtained, informed consent, Education Simp Pt/Fam, Lab and Imaging orders, Results/Orders obtained and Staff clarify orders Established Patient Charge Established Patient Point Assignment: 80 Established Patient Point Charge: EP Level 3 (80-115) Assessment & Plan Diagnosis / Problem List (1) Encounter for initial prescription of contraceptive pills: Status: Acute Plan Status Post Section: - More than one month post section performed on March 12. - Surgical site appears well healed with good recovery progress. Plan: - Discontinue abdominal binder as no longer needed. - No further obstetric follow-up required. History of Breast Abscess: - Patient experienced breast abscess requiring hospitalization , which has now cleared. - Currently without blood in milk. Plan: - Continue as safe and appropriate. - Patient educated that could have continued during abscess treatment. History of Gestational Diabetes: - Patient had diabetes during requiring screening to assess for persistent glucose intolerance. Plan: - Order glucose tolerance test to evaluate for ongoing diabetes. Contraception Counseling: - Patient desires contraception and requested oral contraceptive pills. Plan: - Prescribe oral contraceptive pills safe for .
== END 2025-04-23 11:37 | disposition home or self-care (01) ==
LOC: HODSOBC 11:04
PROVIDERS: Supervising Provider Obstetrics & Gynecology; Visit Provider Obstetrics & Gynecology
DX: Z39.2 Encounter for routine postpartum follow-up (principal); Z39.1 Encounter for care and examination of lactating mother; Z30.011 Encounter for initial prescription of contraceptive pills; O24.439 Gestational diabetes mellitus in the puerperium, unspecified control
CPT/HCPCS: 99213; G0463

== ENCOUNTER 2025-05-12 08:19 | Outpatient (AMB) | payer MEDICAID, SELFPAY ==
--- NOTE | 2025-05-12 08:27 | AMB.GYNCLNOT ---
Allergies/Home Meds Allergies & Medications Allergies No Known Allergies Allergy (Verified 05/12/25 08:28) Medication Reconciliation cephalexin 500 mg capsule 500 mg PO QID #44 caps 04/07/25 [Rx Confirmed 05/12/25] drospirenone 3 mg-ethinyl estradiol 0.02 mg tablet (MAN (28)) 1 tab PO QDAY 84 days #84 tabs 04/23/25 [Rx Confirmed 05/12/25] Intake Visit Data Collection New Patient or Established: Established Patient (seen at [facility] within 3 years) Reason for Visit:: TELE MED / LAB RESULTS Consent obtained for Telemed Visit: Yes Seen by Clinical Staff ONLY (RN/MA): No Grinder Carbon Plant Required: Yes Grinder Carbon Plant's name/title: PATRICIA PEREIRA MA Do You Feel Safe at Home: Yes Authorities Contacted: N/A PCP or OBGYN visit in last 3 months: Yes Date of Last PCP or OBGYN visit: 04/07/25 Hx Now: No Are you currently on any form of Control: Yes Pain Present Currently: No Pain Scale Used: Smith-Bowen/Numerical Pain scale:: 0 Smoking Status Smoking Status: Never smoker Immunizations Flu Vaccine in the Last 12 Months: No Flu Vaccine Exclusion Criteria: No Exclusion Criteria For Telemed visit only Telemed Video/Phone Visit: Yes Verbal consent obtained for Telemed visit?: Yes Telemed Video/Phone visit w/Clinical Staff: 5-10 min Community Support Specialist history Community Support Specialist History Menstrual regularity: irregular Flow: heavy Monthly: Yes How many days does period last: 5 Age at menarche: 13 Currently sexually active: Yes 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 1. Little interest or pleasure in doing things: not at all 2. Feeling down, depressed, or hopeless: not at all Total score: 0 PHQ-9 3. Trouble falling or staying asleep, or sleeping too much: Not at all 4. Feeling tired or having little energy: Not at all 5. Poor appetite or overeating: Not at all 6. Feeling bad about yourself - or that you are a failure or have let yourself or your family down: Not at all 7. Trouble concentrating on things, such as reading the newspaper or watching television: Not at all 8. Moving or speaking so slowly that other people could have noticed? - Or the opposite - being so fidgety or restless that you have been moving around a lot more than usual: not at all 9. Thoughts that you would be better off or of hurting yourself in some way: Not at all Total score: 0 If you checked off any problems, how difficult have these problems made it for you to do your work, take care of things at home, or get along with other people?: not difficult at all Source: Developed by Drs. Andrea Banks, Jeanette Kirk, Terry Trammell and colleagues, with an educational constantino from [employer]. Depression screen completed yes Social History Living Situation History Marital Status: Life Partner Lives With: Family Housing: House Tobacco History Smoking Status: Never smoker Second Hand Smoke Exposure: Yes Alcohol History Alcohol Intake: Never Domestic Abuse History Do You Feel Safe at Home: Yes History of Present Illness HPI Narrative Amandeep Sanchez presents for televisit for follow-up of 2-hour glucose tolerance testing. She delivered on March 12, 2020. The patient was informed that her glucose test results were negative, indicating she does not have diabetes. She is , having delivered on March 12, 2020. ROS: Negative except as stated above, limited to OUTREACH MANAGER and pertinent complaints. Exam Neuro Neurological exam: Present oriented X3 Psych Psychiatric exam: Present normal affect and normal mood Office Procedures OBC Clinic LOC & Office Proc's Nursing/Assessment Patient Status: Established Patient OB Clinic Nursing Assessment: Medication Reconciliation and Update PMH in EMR OB Clinic Coordination of Care: Complex Care and Chronic Disease 1-5, Education Complex Pt/Fam, Consent,records obtained, informed consent, Lab and Imaging orders, Results/Orders obtained and Staff clarify orders Established Patient Charge Established Patient Point Assignment: 95 Telehealth If patient is seen using Teleconference methods, complete New/Est section, but DO NOT selena points only selena the correct Telemed visit type Telemed Phone/Video with patient at home & Dr,PA,MACHINERY DISMANTLER: Yes Telemed Phone/Video with patient in Clinic w/,MACHINERY DISMANTLER,PA outside Clinic: Yes Assessment & Plan Diagnosis / Problem List (1) Encounter for routine follow-up: Status: Acute Plan glucose tolerance screening: - 2-hour glucose tolerance test results are within normal limits, indicating no diabetes mellitus. - Patient is , having delivered on 03-12-2020. Plan: - Establish care with primary care physician for annual diabetes screening monitoring.
== END 2025-05-12 09:54 | disposition home or self-care (01) ==
PROVIDERS: Supervising Provider Obstetrics & Gynecology; Visit Provider Obstetrics & Gynecology
DX: Z13.1 Encounter for screening for diabetes mellitus (principal)
CPT/HCPCS: 99212; Q3014; G0463